=== PATIENT | female | born 1955 | race Caucasian/White ===

== ENCOUNTER → 2016-12-30 | Outpatient (CLI) | payer MEDICARE, OTHER ==
[2016-05-21 11:57] VITALS: BP 129/76
[~2016-12-30] MED LIST: ASPI325T4 PO; ATOR40TA PO; ATOR40TA59 PO; Aspirin PO; BYSTOLIC5 MG PO; CHOL10003 PO; CLOP75TA27 PO; DULO60CA6 PO; FLUT16SP NS; GLIP1TAB4 PO; INSU100I13 SQ; INSU100V13 SQ; Metoprolol Tartrate PO; PANT40TA3 PO
--- NOTE | 2016-12-30 12:53 | CARD ---
APPROVED REPORT EXAM: Two-dimensional and M-mode echocardiogram with Doppler and color Doppler. Other Information Quality : GoodHR: 68bpm Rhythm : NSR INDICATION Cardiac Disease: CAD 2D DIMENSIONS RVDd3.5 (2.9-3.5cm)Left Atrium(2D)3.8 (1.6-4.0cm) IVSd1.0 (0.7-1.1cm)Aortic Root(2D)2.9 (2.0-3.7cm) LVDd4.4 (3.9-5.9cm)LVOT Diameter2.0 (1.8-2.4cm) PWd1.0 (0.7-1.1cm)LVDs3.0 (2.5-4.0cm) FS (%) 31.0 %SV50.7 ml LVEF(%)59.0 (>50%) Aortic Valve AoV Peak Ángel.138.4cm/sAoV VTI30.7cm AO Peak GR.7.7mmHgLVOT Peak Ángel.115.0cm/s LVOT VTI 26.17cmAO Mean GR.4mmHg MARIIA (VMAX)2.26mj1PYJ (VTI)2.63cm2 Mitral Valve MV E Setzicen59.7cm/sMV DECEL LZRB851ot MV A Chsduuxi63.8cm/sMV E Mean Gr.1mmHg MV BRI95hhU/A Ratio0.9 MV A Hxlaktls937dtOOX (PHT)3.27cm2 TDI E/Lateral E'10.9E/Medial E'14.7 Pulmonary Valve PV Peak Hqzzxrah02.9cm/sPV Peak Grad.3mmHg RVOT VTI11.3cm Tricuspid Valve TR P. Bhxvitvw202jv/sRAP OVOLUPWD3uxLn TR Peak Gr.01zjEbXOVY81jnLt Pulmonary Vein S1 Vpnsdflp68.0cm/sD2 Byexyvci48.4cm/s PVa [id number] LEFT VENTRICLE The left ventricle is normal size. There is normal left ventricular wall thickness. Left ventricle sy stolic function is normal. The Ejection Fraction is 55-60%. There is normal LV segmental wall motion. Transmitral Doppler flow pattern is Grade I-abnormal relaxation pattern. There is no ventricular sep yamile defect visualized. RIGHT VENTRICLE The right ventricle is normal size. The right ventricular systolic function is normal. ATRIA The left atrium size is normal. The right atrium size is normal. The interatrial septum is intact wit h no evidence for an atrial septal defect or patent foramen ovale as noted on 2-D or Doppler imaging. AORTIC VALVE The aortic valve is normal in structure and function. The aortic valve is trileaflet. Doppler and Col or Flow revealed no significant aortic regurgitation. There is no significant aortic valvular stenosi s. MITRAL VALVE The mitral valve is normal in structure and function. There is no evidence of mitral valve prolapse. There is no mitral valve stenosis. Doppler and Color Flow revealed mild mitral regurgitation. TRICUSPID VALVE The tricuspid valve is normal in structure. Doppler and Color Flow revealed mild tricuspid regurgitat ion. The PA pressure was estimated at 31 mmHg. There is no tricuspid valve stenosis. PULMONIC VALVE Doppler and Color Flow revealed mild pulmonic valvular regurgitation. There is no pulmonic valvular s tenosis. GREAT VESSELS The aortic root is normal in size. The ascending aorta is dilated to 3.6cm. The IVC is normal in size and collapses >50% with inspiration. PERICARDIAL EFFUSION There is no pleural effusion. There is no evidence of significant pericardial effusion. Critical Notification Critical Value: No <Conclusion> Left ventricle systolic function is normal. The Ejection Fraction is 55-60%. There is normal LV segmental wall motion. The ascending aorta is dilated to 3.6cm.
== END | disposition home or self-care (01) ==
LOC: ECHO 08:37
PROVIDERS: ATTEND Internal Medicine Cardiovascular Disease
DX: I25.10 Atherosclerotic heart disease of native coronary artery without angina pectoris (principal); I34.0 Nonrheumatic mitral (valve) insufficiency; I37.1 Nonrheumatic pulmonary valve insufficiency
CPT/HCPCS: 93306

== ENCOUNTER → 2018-01-06 | Outpatient (CLI) | payer MEDICARE, OTHER ==
[2018-01-06] MEDS: REGADENOSON 0.4 MG/5 ML DISP.SYRIN. IV (09:30)
== END | disposition home or self-care (01) ==
LOC: NM 07:27
DX: I25.10 Atherosclerotic heart disease of native coronary artery without angina pectoris (principal); I10 Essential (primary) hypertension; E11.9 Type 2 diabetes mellitus without complications
CPT/HCPCS: 78452; 93017; 96374; 96375; 96376; A9500; J2785

== ENCOUNTER 2018-11-17 16:47 | Inpatient (IN) | payer MEDICARE, OTHER ==
[~2018-11-17] VITALS: Ht 163.8 cm; Wt 77.6 kg
[~2018-11-17 16:47] MED LIST changes: -ASPI325T4 PO; +ASPI325T8 PO; -CLOP75TA27 PO; +CLOP75TA57 PO
[2018-11-17 17:29] LABS: BASO % 0 % (0-3); EOS # 0.1 x10^3/uL (0.0-0.7); EOS % 3 % (0-3); HEMATOCRIT 42.2 % (36.0-47.0); HEMOGLOBIN 13.7 g/dL (12.0-15.5); LYMPH # 0.8 x10^3/uL (1.0-4.8); LYMPH % 14 % (24-48); MEAN CORPUSCULAR HEMOGLOBIN 30 pg (25-35); MEAN CORPUSCULAR HGB CONC 33 g/dL (31-37); MEAN CORPUSCULAR VOLUME 92 fL (79-100); MONO # 0.5 x10^3/uL (0.0-1.1); MONO % 9 % (0-9); NEUT # 4.1 x10^3uL (1.8-7.7); NEUT % 73 % (31-73); PLATELET COUNT 177 x10^3/uL (140-400); RED BLOOD COUNT 4.57 x10^6/uL (3.50-5.40); RED CELL DISTRIBUTION WIDTH 14.2 % (11.5-14.5); WHITE BLOOD COUNT 5.6 x10^3/uL (4.0-11.0)
[2018-11-17] MEDS ORDERED: IV NORMAL SALINE 1000ML BAG 1,000 ML IV ONE ×4 (17:30→18:15)
[2018-11-17 17:31] LABS: BILIRUBIN,URINE NEGATIVE (NEG); CLARITY,URINE CLEAR; COLOR,URINE YELLOW; NITRITE,URINE NEGATIVE (NEG); PH,URINE 5.5; PROTEIN,URINE NEGATIVE (NEG-TRACE); UROBILINOGEN,URINE 0.2 mg/dL (0.2 mg/dL)
--- NOTE | 2018-11-17 17:36 | PHYS DOC ---
Past Medical History Past Medical History: CAD, Diabetes-Type II, Fibromyalgia, High Cholesterol, Hypertension Past Surgical History: Tubal ligation, Other Additional Past Surgical Histo: Stent placement; left shoulder; Alcohol Use: Rarely Drug Use: None Adult General Chief Complaint Chief Complaint: FLU SYMPTOM HPI HPI Patient is a 63 year old female with history of hypertension, diabetes type 2, high cholesterol, CVA, who presents to the ED today complaining of a productive cough, 8 out of 10 throbbing anterior headache, and fevers for 3 days. Patient denies this being the worst headache in her life. Denies any nausea vomiting. Denies any abdominal pain or diarrhea. Denies any neck pain or nuchal rigidity. Patient states she used to be on diabetes, high blood pressure medications, she took herself from the medications and went to a diet. Review of Systems Review of Systems Constitutional: Reports fever Eyes: Denies change in visual acuity, redness, or eye pain [] HENT: Denies nasal congestion or sore throat [] Respiratory: Reports cough, denies shortness of breath [] Cardiovascular: No additional information not addressed in HPI [] GI: Denies abdominal pain, nausea, vomiting, bloody stools or diarrhea [] : Denies dysuria or hematuria [] Musculoskeletal: Denies back pain or joint pain [] Integument: Denies rash or skin lesions [] Neurologic: Reports headache, denies focal weakness or sensory changes [] [] All other systems were reviewed and found to be within normal limits, except as documented in this note. Current Medications Current Medications Current Medications Medications (Trade) Dose Ordered Sig/Monique Start Time Stop Time Status Last Admin Dose Admin Acetaminophen (Tylenol) 1,000 mg 1X ONCE 11/17/18 18:00 11/17/18 18:01 DC 11/17/18 18:33 1,000 MG Insulin Human Regular (HumuLIN R VIAL) 10 unit 1X ONCE 11/17/18 18:15 11/17/18 18:16 DC 11/17/18 18:35 10 UNIT Piperacillin Sod/ Tazobactam Sod 4.5 gm/Sodium Chloride 100 ml @ 200 mls/hr 1X ONCE 11/17/18 18:00 11/17/18 18:00 DC Sodium Chloride 1,000 ml @ 1,000 mls/hr 1X ONCE 11/17/18 18:15 11/17/18 19:14 DC 11/17/18 18:08 1,000 MLS/HR Allergies Allergies Allergies Coded Allergies Type Severity Reaction Last Updated Verified No Known Drug Allergies 11/20/15 No Physical Exam Physical Exam Constitutional: Well developed, well nourished, no acute distress, non-toxic appearance. [] HENT: Normocephalic, atraumatic, bilateral external ears normal, oropharynx moist, no oral exudates, nose normal. [] Eyes: PERRLA, EOMI, conjunctiva normal, no discharge. [] Neck: Normal range of motion, no tenderness, supple, no stridor. Negative meningeal signs Cardiovascular:Heart rate regular rhythm, no murmur [] Lungs & Thorax: Bilateral breath sounds clear to auscultation [] Abdomen: Bowel sounds normal, soft, no tenderness, no masses, no pulsatile masses. [] Skin: Warm, dry, no erythema, no rash. [] Back: No tenderness, no CVA tenderness. [] Extremities: No tenderness, no cyanosis, no clubbing, ROM intact, no edema. [] Neurologic: Alert and oriented X 3, normal motor function, normal sensory function, no focal deficits noted. Cranial nerves II through XII intact Psychologic: Affect normal, judgement normal, mood normal. [] Current Patient Data Vital Signs Vital Signs Date Time Temp Pulse Resp B/P (MAP) Pulse Ox O2 Delivery O2 Flow Rate FiO2 11/17/18 18:40 92 160/75 (103) 96 11/17/18 17:00 99.7 20 Room Air 99.7 Lab Values Laboratory Tests Test 11/17/18 16:50 11/17/18 17:15 11/17/18 19:22 Urine Collection Type Unknown Urine Color Yellow Urine Clarity Clear Urine pH 5.5 Urine Specific [place] >=1.030 Urine Protein Negative mg/dL (NEG-TRACE) Urine Glucose (UA) >=1000 mg/dL (NEG) Urine Ketones (Stick) 15 mg/dL (NEG) Urine Blood Negative (NEG) Urine Nitrite Negative (NEG) Urine Bilirubin Negative (NEG) Urine Urobilinogen Dipstick 0.2 mg/dL (0.2 mg/dL) Urine Leukocyte Esterase Negative (NEG) Urine RBC 0 /HPF (0-2) Urine WBC 0 /HPF (0-4) Urine Squamous Epithelial Cells Few /LPF Urine Bacteria Few /HPF (0-FEW) White Blood Count 5.6 x10^3/uL (4.0-11.0) Red Blood Count 4.57 x10^6/uL (3.50-5.40) Hemoglobin 13.7 g/dL (12.0-15.5) Hematocrit 42.2 % (36.0-47.0) Mean Corpuscular Volume 92 fL (79-100) Mean Corpuscular Hemoglobin 30 pg (25-35) Mean Corpuscular Hemoglobin Concent 33 g/dL (31-37) Red Cell Distribution Width 14.2 % (11.5-14.5) Platelet Count 177 x10^3/uL (140-400) Neutrophils (%) (Auto) 73 % (31-73) Lymphocytes (%) (Auto) 14 % (24-48) L Monocytes (%) (Auto) 9 % (0-9) Eosinophils (%) (Auto) 3 % (0-3) Basophils (%) (Auto) 0 % (0-3) Neutrophils # (Auto) 4.1 x10^3uL (1.8-7.7) Lymphocytes # (Auto) 0.8 x10^3/uL (1.0-4.8) L Monocytes # (Auto) 0.5 x10^3/uL (0.0-1.1) Eosinophils # (Auto) 0.1 x10^3/uL (0.0-0.7) Basophils # (Auto) 0.0 x10^3/uL (0.0-0.2) Sodium Level 132 mmol/L (136-145) L Potassium Level 4.0 mmol/L (3.5-5.1) Chloride Level 94 mmol/L (98-107) L Carbon Dioxide Level 27 mmol/L (21-32) Anion Gap 11 (6-14) Blood Urea Nitrogen 16 mg/dL (7-20) Creatinine 1.0 mg/dL (0.6-1.0) Estimated GFR (Cockcroft-Gault) 55.6 BUN/Creatinine Ratio 16 (6-20) Glucose Level 601 mg/dL (70-99) *H Lactic Acid Level 1.8 mmol/L (0.4-2.0) Calcium Level 8.9 mg/dL (8.5-10.1) Total Bilirubin 0.3 mg/dL (0.2-1.0) Aspartate Amino Transferase (AST) 55 U/L (15-37) H Alanine Aminotransferase (ALT) 74 U/L (14-59) H Alkaline Phosphatase 266 U/L (46-116) H Total Protein 7.2 g/dL (6.4-8.2) Albumin 3.1 g/dL (3.4-5.0) L Albumin/Globulin Ratio 0.8 (1.0-1.7) L Lipase 105 U/L (73-393) Influenza Type A Antigen Positive (NEGATIVE) Influenza Type B Antigen Negative (NEGATIVE) Glucose (Fingerstick) 353 mg/dL (70-99) H Laboratory Tests 11/17/18 17:15 Laboratory Tests 11/17/18 17:15 EKG EKG [] Radiology/Procedures Radiology/Procedures [] Course & Med Decision Making Course & Med Decision Making Pertinent Labs and Imaging studies reviewed. (See chart for details) This is a 63-year-old female patient presenting to the ED today with complaints of cough, headache, fever, symptoms for 3 days. + for Influenza A. Chest x-ray is negative. Blood glucose 61, normal anion gap, 15 ketones in urine. Patient was started on insulin, IV fluids ordered in the ED. Spoke with who accepted patient for admission Dragon Disclaimer Dragon Disclaimer This electronic medical record was generated, in whole or in part, using a voice recognition dictation system. Departure Departure Impression: Primary Impression: Influenza A Additional Impressions: Hyperglycemia Fever Disposition: ADMITTED INPATIENT Condition: STABLE Referrals: ZACARIAS STARKS MD (PCP) Problem Qualifiers Additional Impressions: Fever Fever type: unspecified Qualified Codes: R50.9 - Fever, unspecified MUTDULCE PEREZ [employer] SYSTEMS ANALYST Nov 17, 2018 17:36
[2018-11-17 17:37] LABS: BACTERIA,URINE FEW /HPF (0-FEW); RBC,URINE 0 /HPF (0-2); SQUAMOUS EPITHELIAL CELL,UR FEW /LPF; WBC,URINE 0 /HPF (0-4)
[2018-11-17 17:49] LABS: INFLUENZA A PATIENT POSITIVE (NEGATIVE); INFLUENZA B PATIENT NEGATIVE (NEGATIVE)
[2018-11-17 17:58] LABS: ALBUMIN 3.1 g/dL (3.4-5.0); ALBUMIN/GLOBULIN RATIO 0.8 (1.0-1.7); CALCIUM 8.9 mg/dL (8.5-10.1); GFR 55.6; TOTAL BILIRUBIN 0.3 mg/dL (0.2-1.0); TOTAL PROTEIN 7.2 g/dL (6.4-8.2)
[2018-11-17] MEDS ORDERED: ACETAMINOPHEN 500 MG TABLET PO ONE (18:00)
[2018-11-17] MEDS ORDERED: PIPERACILLIN/TAZOBACTAM 4.5 GM in IV NORMAL SALINE 100ML 100 ML IV ONE (18:00)
[2018-11-17] MEDS ORDERED: INSULIN REGULAR 100 UNIT/ML 3ML VIAL. IV ONE (18:15)
--- NOTE | 2018-11-17 18:25 | RAD ---
Chest radiograph 11/17/2018 5:36 PM INDICATION: Fever COMPARISON: None available TECHNIQUE: Frontal and lateral views of the chest are provided. FINDINGS: The cardiomediastinal silhouette is within normal limits. There are no pleural effusions. There is no pulmonary vascular congestion. There is no pneumothorax. The lungs are clear. No significant osseous abnormality is identified. IMPRESSION: No acute cardiopulmonary process. Electronically signed by: Petrona Pena MD (11/17/2018 6:22 PM) [facility]
[2018-11-17] MEDS ORDERED: ONDANSETRON PF 4 MG/2 ML VIAL. IV PRN ×2 (20:45→21:00)
[2018-11-17] MEDS ORDERED: LABETALOL 20 MG/4 ML DISP.SYRIN. IVP PRN (20:45)
[2018-11-17] MEDS ORDERED: MORPHINE SULFATE 4 MG/ML VIAL. IV PRN ×2 (20:45→21:00)
[2018-11-17] MEDS ORDERED: ACETAMINOPHEN 325 MG TABLET. PO PRN (21:00)
[2018-11-17] MEDS ORDERED: DEXTROSE 50% 25 GM / 50ML DISP.SYRIN. IV PRN (21:00)
[2018-11-17] MEDS: IV NORMAL SALINE 1000ML BAG 1,000 ML IV SCH (21:41)
[2018-11-17] MEDS: ATORVASTATIN CALCIUM 40 MG TABLET. PO SCH (21:41)
--- NOTE | 2018-11-17 21:46 | PDOC1 ---
History and Physical Date of Admission Date of Admission 11/17/2018 Identification/Chief Complaint Chief Complaint I feel sick Problems: (1) Influenza A (2) Hyperglycemia Source Source: Chart review, Patient History of Present Illness History of Present Illness Patient is a 63 year old female with past medical history of DM HTN and dyslipidemia who was in her usual state of health until mor or less 3 days prior to her admission when she started complaining of generalized malaise, body aches, runny nose and headaches. The patient's daughter had similar symptoms and most likely was the culprit of the patient's illness. Patient was evaluated in the ED and diagnosed with influenza A since the patient is past the 48 hours window she would not benefit from tamiflu at this point. She has had decrease in appetite and decrease oral intake as a consequence of her acute illness. She was found to have uncontrolle diabetes mellitus type 2 insulin requiring reason why we were asked to admit the patient for further treatment. She is feeling somewhat better after fluid resuscitation in the ED. All concerns addressed to the best of my abilities Past Medical History Cardiovascular: HTN, Hyperlipidemia Endocrine: Diabetes Past Surgical History Past Surgical History: No pertinent history Family History Family History: Other (reviewed and found non contributory to the present) Social History Smoke: No ALCOHOL: none Drugs: None Current Problem List Problem List Problems Medical Problems: (1) Fever Status: Acute Current Medications Current Medications Current Medications Medications (Trade) Dose Ordered Sig/Monique Start Time Stop Time Status Last Admin Dose Admin Acetaminophen (Tylenol) 650 mg PRN Q4HRS PRN 11/17/18 21:00 11/17/18 21:00 DC Aspirin (Karen Aspirin) 325 mg DAILY 11/18/18 09:00 Atorvastatin Calcium (Lipitor) 40 mg HS 11/17/18 21:00 Clopidogrel Bisulfate (Plavix) 75 mg DAILYWBKFT 11/18/18 08:00 Dextrose (Dextrose 50%-Water Syringe) 12.5 gm PRN Q15MIN PRN 11/17/18 21:00 Duloxetine HCl (Cymbalta) 60 mg DAILY 11/18/18 09:00 Fluticasone Propionate (Flonase) 2 spray DAILY 11/18/18 09:00 Insulin Glargine (Lantus) 40 units QHS 11/17/18 21:00 Insulin Human Lispro (HumaLOG) 0-9 UNITS TIDWMEALS 11/18/18 08:00 Insulin Human Regular (HumuLIN R VIAL) 10 unit 1X ONCE 11/17/18 18:15 11/17/18 18:16 DC 11/17/18 18:35 10 UNIT Labetalol HCl (Normodyne Iv Push) 20 mg PRN Q2HR PRN 11/17/18 20:45 Metoprolol Tartrate (Lopressor) 25 mg BID 11/18/18 09:00 Morphine Sulfate (Morphine Sulfate) 4 mg PRN Q2HR PRN 11/17/18 21:00 11/17/18 21:00 DC Ondansetron HCl (Zofran) 4 mg PRN Q8HRS PRN 11/17/18 21:00 11/17/18 21:00 DC Piperacillin Sod/ Tazobactam Sod 4.5 gm/Sodium Chloride 100 ml @ 200 mls/hr 1X ONCE 11/17/18 18:00 11/17/18 18:00 DC Sodium Chloride 1,000 ml @ 100 mls/hr Q10H 11/17/18 21:30 Vitamin D (Vitamin D3) 1,000 unit DAILY 11/18/18 09:00 Allergies Allergies Allergies Coded Allergies Type Severity Reaction Last Updated Verified No Known Drug Allergies 11/20/15 No ROS Review of System CONSTITUTIONAL: No fever or chills EYES: No recent changes SKIN: No rash or itching CARDIOVASCULAR: No chest pain, syncope, palpitations, or edema RESPIRATORY: No SOB + cough GASTROINTESTINAL: No nausea, vomiting or abdominal pain NEUROLOGICAL: + headaches or weakness ENDOCRINE: No cold or heat intolerance GENITOURINARY: No urgency or frequency of urination MUSCULOSKELETAL: No back pain or joint pain LYMPHATICS: No enlarged lymph nodes PSYCHIATRIC: No anxiety or depression Physical Exam Physical Exam GEN.: No apparent distress. Alert and oriented. HEENT: Head is normocephalic, atraumatic NECK: Supple. LUNGS: Clear to auscultation. HEART: RRR, S1, S2 present. Peripheral pulses intact ABDOMEN: Soft, nontender. Positive bowel sounds. EXTREMITIES: Without any cyanosis. NEUROLOGIC: Normal speech, normal tone PSYCHIATRIC: Normal affect, normal mood. SKIN: No ulcerations Vitals Vitals Vital Signs Date Time Temp Pulse Resp B/P (MAP) Pulse Ox O2 Delivery O2 Flow Rate FiO2 11/17/18 18:40 92 160/75 (103) 96 11/17/18 17:00 99.7 20 Room Air 99.7 Labs Labs Laboratory Tests Test 11/17/18 16:50 11/17/18 17:15 11/17/18 19:22 11/17/18 20:46 Urine Collection Type Unknown Urine Color Yellow Urine Clarity Clear Urine pH 5.5 Urine Specific [place] >=1.030 Urine Protein Negative mg/dL (NEG-TRACE) Urine Glucose (UA) >=1000 mg/dL (NEG) Urine Ketones (Stick) 15 mg/dL (NEG) Urine Blood Negative (NEG) Urine Nitrite Negative (NEG) Urine Bilirubin Negative (NEG) Urine Urobilinogen Dipstick 0.2 mg/dL (0.2 mg/dL) Urine Leukocyte Esterase Negative (NEG) Urine RBC 0 /HPF (0-2) Urine WBC 0 /HPF (0-4) Urine Squamous Epithelial Cells Few /LPF Urine Bacteria Few /HPF (0-FEW) White Blood Count 5.6 x10^3/uL (4.0-11.0) Red Blood Count 4.57 x10^6/uL (3.50-5.40) Hemoglobin 13.7 g/dL (12.0-15.5) Hematocrit 42.2 % (36.0-47.0) Mean Corpuscular Volume 92 fL (79-100) Mean Corpuscular Hemoglobin 30 pg (25-35) Mean Corpuscular Hemoglobin Concent 33 g/dL (31-37) Red Cell Distribution Width 14.2 % (11.5-14.5) Platelet Count 177 x10^3/uL (140-400) Neutrophils (%) (Auto) 73 % (31-73) Lymphocytes (%) (Auto) 14 % (24-48) Monocytes (%) (Auto) 9 % (0-9) Eosinophils (%) (Auto) 3 % (0-3) Basophils (%) (Auto) 0 % (0-3) Neutrophils # (Auto) 4.1 x10^3uL (1.8-7.7) Lymphocytes # (Auto) 0.8 x10^3/uL (1.0-4.8) Monocytes # (Auto) 0.5 x10^3/uL (0.0-1.1) Eosinophils # (Auto) 0.1 x10^3/uL (0.0-0.7) Basophils # (Auto) 0.0 x10^3/uL (0.0-0.2) Sodium Level 132 mmol/L (136-145) Potassium Level 4.0 mmol/L (3.5-5.1) Chloride Level 94 mmol/L (98-107) Carbon Dioxide Level 27 mmol/L (21-32) Anion Gap 11 (6-14) Blood Urea Nitrogen 16 mg/dL (7-20) Creatinine 1.0 mg/dL (0.6-1.0) Estimated GFR (Cockcroft-Gault) 55.6 BUN/Creatinine Ratio 16 (6-20) Glucose Level 601 mg/dL (70-99) Lactic Acid Level 1.8 mmol/L (0.4-2.0) Calcium Level 8.9 mg/dL (8.5-10.1) Total Bilirubin 0.3 mg/dL (0.2-1.0) Aspartate Amino Transf (AST/SGOT) 55 U/L (15-37) Alanine Aminotransferase (ALT/SGPT) 74 U/L (14-59) Alkaline Phosphatase 266 U/L (46-116) Total Protein 7.2 g/dL (6.4-8.2) Albumin 3.1 g/dL (3.4-5.0) Albumin/Globulin Ratio 0.8 (1.0-1.7) Lipase 105 U/L (73-393) Influenza Type A Antigen Positive (NEGATIVE) Influenza Type B Antigen Negative (NEGATIVE) Glucose (Fingerstick) 353 mg/dL (70-99) 447 mg/dL (70-99) Laboratory Tests Test 11/17/18 16:50 11/17/18 17:15 11/17/18 19:22 11/17/18 20:46 Urine Collection Type Unknown Urine Color Yellow Urine Clarity Clear Urine pH 5.5 Urine Specific [place] >=1.030 Urine Protein Negative mg/dL (NEG-TRACE) Urine Glucose (UA) >=1000 mg/dL (NEG) Urine Ketones (Stick) 15 mg/dL (NEG) Urine Blood Negative (NEG) Urine Nitrite Negative (NEG) Urine Bilirubin Negative (NEG) Urine Urobilinogen Dipstick 0.2 mg/dL (0.2 mg/dL) Urine Leukocyte Esterase Negative (NEG) Urine RBC 0 /HPF (0-2) Urine WBC 0 /HPF (0-4) Urine Squamous Epithelial Cells Few /LPF Urine Bacteria Few /HPF (0-FEW) White Blood Count 5.6 x10^3/uL (4.0-11.0) Red Blood Count 4.57 x10^6/uL (3.50-5.40) Hemoglobin 13.7 g/dL (12.0-15.5) Hematocrit 42.2 % (36.0-47.0) Mean Corpuscular Volume 92 fL (79-100) Mean Corpuscular Hemoglobin 30 pg (25-35) Mean Corpuscular Hemoglobin Concent 33 g/dL (31-37) Red Cell Distribution Width 14.2 % (11.5-14.5) Platelet Count 177 x10^3/uL (140-400) Neutrophils (%) (Auto) 73 % (31-73) Lymphocytes (%) (Auto) 14 % (24-48) Monocytes (%) (Auto) 9 % (0-9) Eosinophils (%) (Auto) 3 % (0-3) Basophils (%) (Auto) 0 % (0-3) Neutrophils # (Auto) 4.1 x10^3uL (1.8-7.7) Lymphocytes # (Auto) 0.8 x10^3/uL (1.0-4.8) Monocytes # (Auto) 0.5 x10^3/uL (0.0-1.1) Eosinophils # (Auto) 0.1 x10^3/uL (0.0-0.7) Basophils # (Auto) 0.0 x10^3/uL (0.0-0.2) Sodium Level 132 mmol/L (136-145) Potassium Level 4.0 mmol/L (3.5-5.1) Chloride Level 94 mmol/L (98-107) Carbon Dioxide Level 27 mmol/L (21-32) Anion Gap 11 (6-14) Blood Urea Nitrogen 16 mg/dL (7-20) Creatinine 1.0 mg/dL (0.6-1.0) Estimated GFR (Cockcroft-Gault) 55.6 BUN/Creatinine Ratio 16 (6-20) Glucose Level 601 mg/dL (70-99) Lactic Acid Level 1.8 mmol/L (0.4-2.0) Calcium Level 8.9 mg/dL (8.5-10.1) Total Bilirubin 0.3 mg/dL (0.2-1.0) Aspartate Amino Transf (AST/SGOT) 55 U/L (15-37) Alanine Aminotransferase (ALT/SGPT) 74 U/L (14-59) Alkaline Phosphatase 266 U/L (46-116) Total Protein 7.2 g/dL (6.4-8.2) Albumin 3.1 g/dL (3.4-5.0) Albumin/Globulin Ratio 0.8 (1.0-1.7) Lipase 105 U/L (73-393) Influenza Type A Antigen Positive (NEGATIVE) Influenza Type B Antigen Negative (NEGATIVE) Glucose (Fingerstick) 353 mg/dL (70-99) 447 mg/dL (70-99) VTE Prophylaxis Ordered VTE Prophylaxis Devices: Yes VTE Pharmacological Prophylaxi: No Assessment/Plan Assessment/Plan Uncontrolled diabetes mellitus type 2 insulin requiring Influenza A Essential hypertension dyslipidemia Moderate dehydration Pseudohyponatremia secondary to hyperglycemia Plan: fluid resuscitation restart home medications follow glycemia in the am supportive measures for influenza dvt prophylaxis: SEBAS SAUCEDO MD Nov 17, 2018 21:46
[2018-11-17] MEDS: INSULIN GLARGINE 300 UNITS/3 ML INSULN.PEN. SQ SCH (21:47)
[2018-11-17 22:36] VITALS: BP 115/59
[2018-11-17] MEDS ORDERED: LISI-338 PO (22:55)
[2018-11-18 03:27] VITALS: BP 144/77
[2018-11-18 04:01] LABS: BASO % 0 % (0-3); EOS # 0.2 x10^3/uL (0.0-0.7); EOS % 3 % (0-3); HEMATOCRIT 41.3 % (36.0-47.0); HEMOGLOBIN 13.4 g/dL (12.0-15.5); LYMPH # 1.2 x10^3/uL (1.0-4.8); LYMPH % 18 % (24-48); MEAN CORPUSCULAR HEMOGLOBIN 30 pg (25-35); MEAN CORPUSCULAR HGB CONC 32 g/dL (31-37); MEAN CORPUSCULAR VOLUME 92 fL (79-100); MONO # 0.7 x10^3/uL (0.0-1.1); MONO % 11 % (0-9); NEUT # 4.2 x10^3uL (1.8-7.7); NEUT % 68 % (31-73); PLATELET COUNT 175 x10^3/uL (140-400); RED BLOOD COUNT 4.51 x10^6/uL (3.50-5.40); RED CELL DISTRIBUTION WIDTH 14.4 % (11.5-14.5); WHITE BLOOD COUNT 6.3 x10^3/uL (4.0-11.0)
[2018-11-18 04:15] LABS: CALCIUM 8.4 mg/dL (8.5-10.1); CREATININE 0.7 mg/dL (0.6-1.0); POTASSIUM 3.7 mmol/L (3.5-5.1)
[2018-11-18] MEDS: ACETAMINOPHEN 325 MG TABLET. PO PRN ×2 (07:14→15:33)
[2018-11-18] MEDS: IV NORMAL SALINE 1000ML BAG 1,000 ML IV SCH ×2 (07:14→16:50)
[2018-11-18 07:20] VITALS: BP 137/79
[2018-11-18] MEDS ORDERED: ALBUTEROL SULFATE 2.5 MG/3 ML NEBU. NEB ONE (07:30)
[2018-11-18] MEDS: INSULIN LISPRO 300 UNITS/3 ML INSULN.PEN. SQ SCH ×5 (07:34→16:54)
[2018-11-18] MEDS: CHOLECALCIFEROL (VITAMIN D3) 1,000 UNIT TABLET PO SCH (08:54)
[2018-11-18] MEDS: FLUTICASONE 50MCG/NASAL SPRAY 16GM BOTTLE. NS SCH (08:54)
[2018-11-18] MEDS: ASPIRIN 325 MG TABLET PO SCH (08:54)
[2018-11-18] MEDS: CLOPIDOGREL BISULFATE 75 MG TABLET PO SCH (08:54)
[2018-11-18] MEDS: DULoxetine HCL 30 MG CAPSULE.DR PO SCH (08:55)
[2018-11-18] MEDS: METOPROLOL TART IMMED RELEASE 25 MG TABLET. PO SCH ×2 (08:55→20:57)
[2018-11-18 11:00] VITALS: BP 107/66
[2018-11-18] MEDS: ALBUTEROL SULFATE 2.5 MG/3 ML NEBU. NEB SCH ×3 (11:31→20:16)
--- NOTE | 2018-11-18 11:40 | PDOC ---
PROGRESS NOTES Chief Complaint Chief Complaint Uncontrolled diabetes mellitus type 2 insulin requiring Influenza A Essential hypertension dyslipidemia Moderate dehydration Pseudohyponatremia secondary to hyperglycemia History of Present Illness History of Present Illness 63 year old female with past medical history of DM HTN and dyslipidemia who was in her usual state of health until 3 days prior to her admission when she started complaining of generalized malaise, body aches, runny nose and headaches. The patient's daughter had similar symptoms and most likely was the culprit of the patient's illness. Patient was evaluated in the ED and diagnosed with influenza A since the patient is past the 48 hours window she was initially not given tamiflu She has had decrease in appetite and decrease oral intake as a consequence of her acute illness. She was found to have uncontrolle diabetes mellitus type 2 insulin requiring reason why we were asked to admit the patient for further treatment. She is feeling somewhat better after fluid resuscitation in the ED. Still very short of breath and wheezing today. Hypoxic. She is c/o a bad headache and nausea. Plan: Order nebs. IV zofran for nausea. Toradol IV for headache Start tamiflu, though she is beyond treatment she is worsening, needs further treatment. Vitals Vitals Vital Signs Date Time Temp Pulse Resp B/P (MAP) Pulse Ox O2 Delivery O2 Flow Rate FiO2 11/18/18 08:55 86 137/79 11/18/18 08:00 Room Air 11/18/18 07:35 93 11/18/18 07:25 99.0 99.0 11/18/18 07:20 20 Physical Exam General: Alert, Cooperative Heart: Regular rate, No murmurs Lungs: Wheezing Abdomen: Normal bowel sounds, Soft Extremities: No clubbing, No cyanosis Skin: No rashes, No breakdown Labs LABS Laboratory Tests Test 11/17/18 16:50 11/17/18 17:15 11/17/18 19:22 11/17/18 20:46 Urine Collection Type Unknown Urine Color Yellow Urine Clarity Clear Urine pH 5.5 Urine Specific [place] >=1.030 Urine Protein Negative mg/dL (NEG-TRACE) Urine Glucose (UA) >=1000 mg/dL (NEG) Urine Ketones (Stick) 15 mg/dL (NEG) Urine Blood Negative (NEG) Urine Nitrite Negative (NEG) Urine Bilirubin Negative (NEG) Urine Urobilinogen Dipstick 0.2 mg/dL (0.2 mg/dL) Urine Leukocyte Esterase Negative (NEG) Urine RBC 0 /HPF (0-2) Urine WBC 0 /HPF (0-4) Urine Squamous Epithelial Cells Few /LPF Urine Bacteria Few /HPF (0-FEW) White Blood Count 5.6 x10^3/uL (4.0-11.0) Red Blood Count 4.57 x10^6/uL (3.50-5.40) Hemoglobin 13.7 g/dL (12.0-15.5) Hematocrit 42.2 % (36.0-47.0) Mean Corpuscular Volume 92 fL (79-100) Mean Corpuscular Hemoglobin 30 pg (25-35) Mean Corpuscular Hemoglobin Concent 33 g/dL (31-37) Red Cell Distribution Width 14.2 % (11.5-14.5) Platelet Count 177 x10^3/uL (140-400) Neutrophils (%) (Auto) 73 % (31-73) Lymphocytes (%) (Auto) 14 % (24-48) Monocytes (%) (Auto) 9 % (0-9) Eosinophils (%) (Auto) 3 % (0-3) Basophils (%) (Auto) 0 % (0-3) Neutrophils # (Auto) 4.1 x10^3uL (1.8-7.7) Lymphocytes # (Auto) 0.8 x10^3/uL (1.0-4.8) Monocytes # (Auto) 0.5 x10^3/uL (0.0-1.1) Eosinophils # (Auto) 0.1 x10^3/uL (0.0-0.7) Basophils # (Auto) 0.0 x10^3/uL (0.0-0.2) Sodium Level 132 mmol/L (136-145) Potassium Level 4.0 mmol/L (3.5-5.1) Chloride Level 94 mmol/L (98-107) Carbon Dioxide Level 27 mmol/L (21-32) Anion Gap 11 (6-14) Blood Urea Nitrogen 16 mg/dL (7-20) Creatinine 1.0 mg/dL (0.6-1.0) Estimated GFR (Cockcroft-Gault) 55.6 BUN/Creatinine Ratio 16 (6-20) Glucose Level 601 mg/dL (70-99) Lactic Acid Level 1.8 mmol/L (0.4-2.0) Calcium Level 8.9 mg/dL (8.5-10.1) Total Bilirubin 0.3 mg/dL (0.2-1.0) Aspartate Amino Transf (AST/SGOT) 55 U/L (15-37) Alanine Aminotransferase (ALT/SGPT) 74 U/L (14-59) Alkaline Phosphatase 266 U/L (46-116) Total Protein 7.2 g/dL (6.4-8.2) Albumin 3.1 g/dL (3.4-5.0) Albumin/Globulin Ratio 0.8 (1.0-1.7) Lipase 105 U/L (73-393) Influenza Type A Antigen Positive (NEGATIVE) Influenza Type B Antigen Negative (NEGATIVE) Glucose (Fingerstick) 353 mg/dL (70-99) 447 mg/dL (70-99) Test 11/17/18 23:00 11/18/18 03:20 11/18/18 07:24 11/18/18 10:55 Lactic Acid Level 0.7 mmol/L (0.4-2.0) White Blood Count 6.3 x10^3/uL (4.0-11.0) Red Blood Count 4.51 x10^6/uL (3.50-5.40) Hemoglobin 13.4 g/dL (12.0-15.5) Hematocrit 41.3 % (36.0-47.0) Mean Corpuscular Volume 92 fL (79-100) Mean Corpuscular Hemoglobin 30 pg (25-35) Mean Corpuscular Hemoglobin Concent 32 g/dL (31-37) Red Cell Distribution Width 14.4 % (11.5-14.5) Platelet Count 175 x10^3/uL (140-400) Neutrophils (%) (Auto) 68 % (31-73) Lymphocytes (%) (Auto) 18 % (24-48) Monocytes (%) (Auto) 11 % (0-9) Eosinophils (%) (Auto) 3 % (0-3) Basophils (%) (Auto) 0 % (0-3) Neutrophils # (Auto) 4.2 x10^3uL (1.8-7.7) Lymphocytes # (Auto) 1.2 x10^3/uL (1.0-4.8) Monocytes # (Auto) 0.7 x10^3/uL (0.0-1.1) Eosinophils # (Auto) 0.2 x10^3/uL (0.0-0.7) Basophils # (Auto) 0.0 x10^3/uL (0.0-0.2) Sodium Level 142 mmol/L (136-145) Potassium Level 3.7 mmol/L (3.5-5.1) Chloride Level 104 mmol/L (98-107) Carbon Dioxide Level 27 mmol/L (21-32) Anion Gap 11 (6-14) Blood Urea Nitrogen 12 mg/dL (7-20) Creatinine 0.7 mg/dL (0.6-1.0) Estimated GFR (Cockcroft-Gault) 84.0 Glucose Level 315 mg/dL (70-99) Calcium Level 8.4 mg/dL (8.5-10.1) Glucose (Fingerstick) 202 mg/dL (70-99) 240 mg/dL (70-99) Assessment and Plan Assessmemt and Plan Problems Medical Problems: (1) Fever Status: Acute Comment Review of Relevant I have reviewed the following items trixie (where applicable) has been applied. Labs Laboratory Tests Test 11/17/18 16:50 11/17/18 17:15 11/17/18 19:22 11/17/18 20:46 Urine Collection Type Unknown Urine Color Yellow Urine Clarity Clear Urine pH 5.5 Urine Specific [place] >=1.030 Urine Protein Negative mg/dL (NEG-TRACE) Urine Glucose (UA) >=1000 mg/dL (NEG) Urine Ketones (Stick) 15 mg/dL (NEG) Urine Blood Negative (NEG) Urine Nitrite Negative (NEG) Urine Bilirubin Negative (NEG) Urine Urobilinogen Dipstick 0.2 mg/dL (0.2 mg/dL) Urine Leukocyte Esterase Negative (NEG) Urine RBC 0 /HPF (0-2) Urine WBC 0 /HPF (0-4) Urine Squamous Epithelial Cells Few /LPF Urine Bacteria Few /HPF (0-FEW) White Blood Count 5.6 x10^3/uL (4.0-11.0) Red Blood Count 4.57 x10^6/uL (3.50-5.40) Hemoglobin 13.7 g/dL (12.0-15.5) Hematocrit 42.2 % (36.0-47.0) Mean Corpuscular Volume 92 fL (79-100) Mean Corpuscular Hemoglobin 30 pg (25-35) Mean Corpuscular Hemoglobin Concent 33 g/dL (31-37) Red Cell Distribution Width 14.2 % (11.5-14.5) Platelet Count 177 x10^3/uL (140-400) Neutrophils (%) (Auto) 73 % (31-73) Lymphocytes (%) (Auto) 14 % (24-48) Monocytes (%) (Auto) 9 % (0-9) Eosinophils (%) (Auto) 3 % (0-3) Basophils (%) (Auto) 0 % (0-3) Neutrophils # (Auto) 4.1 x10^3uL (1.8-7.7) Lymphocytes # (Auto) 0.8 x10^3/uL (1.0-4.8) Monocytes # (Auto) 0.5 x10^3/uL (0.0-1.1) Eosinophils # (Auto) 0.1 x10^3/uL (0.0-0.7) Basophils # (Auto) 0.0 x10^3/uL (0.0-0.2) Sodium Level 132 mmol/L (136-145) Potassium Level 4.0 mmol/L (3.5-5.1) Chloride Level 94 mmol/L (98-107) Carbon Dioxide Level 27 mmol/L (21-32) Anion Gap 11 (6-14) Blood Urea Nitrogen 16 mg/dL (7-20) Creatinine 1.0 mg/dL (0.6-1.0) Estimated GFR (Cockcroft-Gault) 55.6 BUN/Creatinine Ratio 16 (6-20) Glucose Level 601 mg/dL (70-99) Lactic Acid Level 1.8 mmol/L (0.4-2.0) Calcium Level 8.9 mg/dL (8.5-10.1) Total Bilirubin 0.3 mg/dL (0.2-1.0) Aspartate Amino Transf (AST/SGOT) 55 U/L (15-37) Alanine Aminotransferase (ALT/SGPT) 74 U/L (14-59) Alkaline Phosphatase 266 U/L (46-116) Total Protein 7.2 g/dL (6.4-8.2) Albumin 3.1 g/dL (3.4-5.0) Albumin/Globulin Ratio 0.8 (1.0-1.7) Lipase 105 U/L (73-393) Influenza Type A Antigen Positive (NEGATIVE) Influenza Type B Antigen Negative (NEGATIVE) Glucose (Fingerstick) 353 mg/dL (70-99) 447 mg/dL (70-99) Test 11/17/18 23:00 11/18/18 03:20 11/18/18 07:24 11/18/18 10:55 Lactic Acid Level 0.7 mmol/L (0.4-2.0) White Blood Count 6.3 x10^3/uL (4.0-11.0) Red Blood Count 4.51 x10^6/uL (3.50-5.40) Hemoglobin 13.4 g/dL (12.0-15.5) Hematocrit 41.3 % (36.0-47.0) Mean Corpuscular Volume 92 fL (79-100) Mean Corpuscular Hemoglobin 30 pg (25-35) Mean Corpuscular Hemoglobin Concent 32 g/dL (31-37) Red Cell Distribution Width 14.4 % (11.5-14.5) Platelet Count 175 x10^3/uL (140-400) Neutrophils (%) (Auto) 68 % (31-73) Lymphocytes (%) (Auto) 18 % (24-48) Monocytes (%) (Auto) 11 % (0-9) Eosinophils (%) (Auto) 3 % (0-3) Basophils (%) (Auto) 0 % (0-3) Neutrophils # (Auto) 4.2 x10^3uL (1.8-7.7) Lymphocytes # (Auto) 1.2 x10^3/uL (1.0-4.8) Monocytes # (Auto) 0.7 x10^3/uL (0.0-1.1) Eosinophils # (Auto) 0.2 x10^3/uL (0.0-0.7) Basophils # (Auto) 0.0 x10^3/uL (0.0-0.2) Sodium Level 142 mmol/L (136-145) Potassium Level 3.7 mmol/L (3.5-5.1) Chloride Level 104 mmol/L (98-107) Carbon Dioxide Level 27 mmol/L (21-32) Anion Gap 11 (6-14) Blood Urea Nitrogen 12 mg/dL (7-20) Creatinine 0.7 mg/dL (0.6-1.0) Estimated GFR (Cockcroft-Gault) 84.0 Glucose Level 315 mg/dL (70-99) Calcium Level 8.4 mg/dL (8.5-10.1) Glucose (Fingerstick) 202 mg/dL (70-99) 240 mg/dL (70-99) Laboratory Tests Test 11/17/18 16:50 11/17/18 17:15 11/17/18 19:22 11/17/18 20:46 Urine Collection Type Unknown Urine Color Yellow Urine Clarity Clear Urine pH 5.5 Urine Specific [place] >=1.030 Urine Protein Negative mg/dL (NEG-TRACE) Urine Glucose (UA) >=1000 mg/dL (NEG) Urine Ketones (Stick) 15 mg/dL (NEG) Urine Blood Negative (NEG) Urine Nitrite Negative (NEG) Urine Bilirubin Negative (NEG) Urine Urobilinogen Dipstick 0.2 mg/dL (0.2 mg/dL) Urine Leukocyte Esterase Negative (NEG) Urine RBC 0 /HPF (0-2) Urine WBC 0 /HPF (0-4) Urine Squamous Epithelial Cells Few /LPF Urine Bacteria Few /HPF (0-FEW) White Blood Count 5.6 x10^3/uL (4.0-11.0) Red Blood Count 4.57 x10^6/uL (3.50-5.40) Hemoglobin 13.7 g/dL (12.0-15.5) Hematocrit 42.2 % (36.0-47.0) Mean Corpuscular Volume 92 fL (79-100) Mean Corpuscular Hemoglobin 30 pg (25-35) Mean Corpuscular Hemoglobin Concent 33 g/dL (31-37) Red Cell Distribution Width 14.2 % (11.5-14.5) Platelet Count 177 x10^3/uL (140-400) Neutrophils (%) (Auto) 73 % (31-73) Lymphocytes (%) (Auto) 14 % (24-48) Monocytes (%) (Auto) 9 % (0-9) Eosinophils (%) (Auto) 3 % (0-3) Basophils (%) (Auto) 0 % (0-3) Neutrophils # (Auto) 4.1 x10^3uL (1.8-7.7) Lymphocytes # (Auto) 0.8 x10^3/uL (1.0-4.8) Monocytes # (Auto) 0.5 x10^3/uL (0.0-1.1) Eosinophils # (Auto) 0.1 x10^3/uL (0.0-0.7) Basophils # (Auto) 0.0 x10^3/uL (0.0-0.2) Sodium Level 132 mmol/L (136-145) Potassium Level 4.0 mmol/L (3.5-5.1) Chloride Level 94 mmol/L (98-107) Carbon Dioxide Level 27 mmol/L (21-32) Anion Gap 11 (6-14) Blood Urea Nitrogen 16 mg/dL (7-20) Creatinine 1.0 mg/dL (0.6-1.0) Estimated GFR (Cockcroft-Gault) 55.6 BUN/Creatinine Ratio 16 (6-20) Glucose Level 601 mg/dL (70-99) Lactic Acid Level 1.8 mmol/L (0.4-2.0) Calcium Level 8.9 mg/dL (8.5-10.1) Total Bilirubin 0.3 mg/dL (0.2-1.0) Aspartate Amino Transf (AST/SGOT) 55 U/L (15-37) Alanine Aminotransferase (ALT/SGPT) 74 U/L (14-59) Alkaline Phosphatase 266 U/L (46-116) Total Protein 7.2 g/dL (6.4-8.2) Albumin 3.1 g/dL (3.4-5.0) Albumin/Globulin Ratio 0.8 (1.0-1.7) Lipase 105 U/L (73-393) Influenza Type A Antigen Positive (NEGATIVE) Influenza Type B Antigen Negative (NEGATIVE) Glucose (Fingerstick) 353 mg/dL (70-99) 447 mg/dL (70-99) Test 11/17/18 23:00 11/18/18 03:20 11/18/18 07:24 11/18/18 10:55 Lactic Acid Level 0.7 mmol/L (0.4-2.0) White Blood Count 6.3 x10^3/uL (4.0-11.0) Red Blood Count 4.51 x10^6/uL (3.50-5.40) Hemoglobin 13.4 g/dL (12.0-15.5) Hematocrit 41.3 % (36.0-47.0) Mean Corpuscular Volume 92 fL (79-100) Mean Corpuscular Hemoglobin 30 pg (25-35) Mean Corpuscular Hemoglobin Concent 32 g/dL (31-37) Red Cell Distribution Width 14.4 % (11.5-14.5) Platelet Count 175 x10^3/uL (140-400) Neutrophils (%) (Auto) 68 % (31-73) Lymphocytes (%) (Auto) 18 % (24-48) Monocytes (%) (Auto) 11 % (0-9) Eosinophils (%) (Auto) 3 % (0-3) Basophils (%) (Auto) 0 % (0-3) Neutrophils # (Auto) 4.2 x10^3uL (1.8-7.7) Lymphocytes # (Auto) 1.2 x10^3/uL (1.0-4.8) Monocytes # (Auto) 0.7 x10^3/uL (0.0-1.1) Eosinophils # (Auto) 0.2 x10^3/uL (0.0-0.7) Basophils # (Auto) 0.0 x10^3/uL (0.0-0.2) Sodium Level 142 mmol/L (136-145) Potassium Level 3.7 mmol/L (3.5-5.1) Chloride Level 104 mmol/L (98-107) Carbon Dioxide Level 27 mmol/L (21-32) Anion Gap 11 (6-14) Blood Urea Nitrogen 12 mg/dL (7-20) Creatinine 0.7 mg/dL (0.6-1.0) Estimated GFR (Cockcroft-Gault) 84.0 Glucose Level 315 mg/dL (70-99) Calcium Level 8.4 mg/dL (8.5-10.1) Glucose (Fingerstick) 202 mg/dL (70-99) 240 mg/dL (70-99) Medications Current Medications Piperacillin Sod/ Tazobactam Sod 4.5 gm/Sodium Chloride 100 ml @ 200 mls/hr 1X ONCE IV ; Start 11/17/18 at 18:00; Stop 11/17/18 at 18:00; Status DC Sodium Chloride 1,000 ml @ 1,000 mls/hr 1X ONCE IV ; Start 11/17/18 at 17:30; Stop 11/17/18 at 17:54; Status DC Acetaminophen (Tylenol) 1,000 mg 1X ONCE PO Last administered on 11/17/18at 18: 33; Start 11/17/18 at 18:00; Stop 11/17/18 at 18:01; Status DC Sodium Chloride 1,000 ml @ 1,000 mls/hr 1X ONCE IV ; Start 11/17/18 at 17:45; Stop 11/17/18 at 17:54; Status DC Sodium Chloride 1,000 ml @ 1,000 mls/hr 1X ONCE IV Last administered on at 18:08; Start 11/17/18 at 18:15; Stop 11/17/18 at 19:14; Status DC Sodium Chloride 1,000 ml @ 1,000 mls/hr 1X ONCE IV Last administered on at 18:08; Start 11/17/18 at 18:15; Stop 11/17/18 at 19:14; Status DC Insulin Human Regular (HumuLIN R VIAL) 10 unit 1X ONCE IV Last administered on 11/17/18at 18:35; Start 11/17/18 at 18:15; Stop 11/17/18 at 18:16; Status DC Aspirin (Karen Aspirin) 325 mg DAILY PO Last administered on 11/18/18at 08:54; Start 11/18/18 at 09:00 Atorvastatin Calcium (Lipitor) 40 mg HS PO Last administered on 11/17/18at 21:41 ; Start 11/17/18 at 21:00 Vitamin D (Vitamin D3) 1,000 unit DAILY PO Last administered on 11/18/18at 08:54 ; Start 11/18/18 at 09:00 Clopidogrel Bisulfate (Plavix) 75 mg DAILYWBKFT PO Last administered on at 08:54; Start 11/18/18 at 08:00 Fluticasone Propionate (Flonase) 2 spray DAILY NS Last administered on 08:54; Start 11/18/18 at 09:00 Insulin Glargine (Lantus) 40 units QHS SQ Last administered on 11/17/18at 21:47 ; Start 11/17/18 at 21:00 Duloxetine HCl (Cymbalta) 60 mg DAILY PO Last administered on 11/18/18 08:55; Start 11/18/18 at 09:00 Metoprolol Tartrate (Lopressor) 25 mg BID PO Last administered on 11/18/18 08: 55; Start 11/18/18 at 09:00 Labetalol HCl (Normodyne Iv Push) 20 mg PRN Q2HR PRN IVP HYPERTENSION, SEE COMMENTS; Start 11/17/18 at 20:45 Acetaminophen (Tylenol) 650 mg PRN Q6HRS PRN PO pain or temp > 100.4F Last administered on 11/18/18at 07:14; Start 11/17/18 at 20:45 Sodium Chloride 1,000 ml @ 100 mls/hr Q10H IV Last administered on 11/18/18at 07:14; Start 11/17/18 at 21:30 Morphine Sulfate (Morphine Sulfate) 2 mg PRN Q2HR PRN IV PAIN; Start 11/17/18 at 20:45 Ondansetron HCl (Zofran) 4 mg PRN Q6HRS PRN IV NAUSEA/VOMITING; Start 11/17/18 at 20:45 Ondansetron HCl (Zofran) 4 mg PRN Q8HRS PRN IV NAUSEA/VOMITING; Start 11/17/18 at 21:00; Stop 11/17/18 at 21:00; Status DC Morphine Sulfate (Morphine Sulfate) 4 mg PRN Q2HR PRN IV PAIN; Start 11/17/18 at 21:00; Stop 11/17/18 at 21:00; Status DC Acetaminophen (Tylenol) 650 mg PRN Q4HRS PRN PO FEVER; Start 11/17/18 at 21:00 ; Stop 11/17/18 at 21:00; Status DC Insulin Human Lispro (HumaLOG) 0-9 UNITS TIDWMEALS SQ Last administered on 11/18 07:34; Start 11/18/18 at 08:00 Dextrose (Dextrose 50%-Water Syringe) 12.5 gm PRN Q15MIN PRN IV SEE COMMENTS; Start 11/17/18 at 21:00 Albuterol Sulfate (Ventolin Neb Soln) 2.5 mg 1X ONCE NEB Last administered on 11/18/18at 07:35; Start 11/18/18 at 07:30; Stop 11/18/18 at 07:31; Status DC Albuterol Sulfate (Ventolin Neb Soln) 2.5 mg RTQID NEB Last administered on at 11:31; Start 11/18/18 at 12:00 Active Scripts Active Plavix (Clopidogrel Bisulfate) 75 Mg Tablet 75 Mg PO DAILYWBKFT Reported Lisinopril 5 Mg Tablet 5 Mg PO DAILY Atorvastatin Calcium 40 Mg Tablet 1 Tab PO HS Lantus Solostar (Insulin Glargine,Hum.rec.anlog) 100 Unit/1 Ml Insuln.pen 40 Unit SQ QHS Fluticasone Propionate Nasal [place] (Fluticasone Propionate) 16 Gm [place].susp 2 [place] NS Vitamin D3 (Cholecalciferol (Vitamin D3)) 1,000 Unit Tablet 1 Tab PO DAILY Cymbalta (Duloxetine Hcl) 60 Mg Capsule.dr 1 Cap PO DAILY Aspirin 325 Mg Tablet 1 Tab PO DAILY Glipizide-Metformin 2.5-500 Mg (Glipizide/Metformin Hcl) 1 Each Tablet 2 Each PO BID Vitals/I & O Vital Sign - Last 24 Hours 11/17/18 11/17/18 11/17/18 11/17/18 17:00 17:09 17:46 18:10 Temp 99.7 99.7 Pulse 91 89 90 89 Resp 20 B/P (MAP) 165/95 (118) 165/95 (118) 155/85 (108) 175/90 (118) Pulse Ox 95 96 96 O2 Delivery Room Air 11/17/18 11/17/18 11/17/18 11/18/18 18:40 22:00 22:36 03:27 Temp 98.3 97.9 98.3 97.9 Pulse 92 79 82 Resp 18 18 B/P (MAP) 160/75 (103) 115/59 (77) 144/77 (99) Pulse Ox 96 92 93 O2 Delivery Room Air Room Air Room Air 11/18/18 11/18/18 11/18/18 11/18/18 07:20 07:25 07:35 08:00 Temp 99.0 99.0 Pulse 86 Resp 20 B/P (MAP) 137/79 (98) Pulse Ox 94 93 O2 Delivery Room Air Room Air Room Air 11/18/18 08:55 Pulse 86 B/P (MAP) 137/79 Intake and Output 11/17/18 11/17/18 11/18/18 15:00 23:00 07:00 Intake Total 2000 ml 300 ml Balance 2000 ml 300 ml CELINE REDMAN MD Nov 18, 2018 11:40
[2018-11-18] MEDS: OSELTAMIVIR 75 MG CAPSULE PO SCH ×2 (12:04→20:57)
[2018-11-18] MEDS ORDERED: KETOROLAC 30 MG/ML VIAL. IV PRN (12:15)
[2018-11-18 15:00] VITALS: BP 159/88
[2018-11-18 19:46] VITALS: BP 140/75
[2018-11-18] MEDS: ATORVASTATIN CALCIUM 40 MG TABLET. PO SCH (20:57)
[2018-11-18] MEDS: INSULIN GLARGINE 300 UNITS/3 ML INSULN.PEN. SQ SCH (21:02)
[2018-11-19] MEDS: ACETAMINOPHEN 325 MG TABLET. PO PRN ×2 (00:01→08:12)
[2018-11-19 03:27] VITALS: BP 147/76
[2018-11-19] MEDS: IV NORMAL SALINE 1000ML BAG 1,000 ML IV SCH (03:30)
[2018-11-19] MEDS: ALBUTEROL SULFATE 2.5 MG/3 ML NEBU. NEB SCH ×3 (07:09→15:10)
[2018-11-19 07:38] VITALS: BP 140/75
[2018-11-19] MEDS: CHOLECALCIFEROL (VITAMIN D3) 1,000 UNIT TABLET PO SCH (08:10)
[2018-11-19] MEDS: FLUTICASONE 50MCG/NASAL SPRAY 16GM BOTTLE. NS SCH (08:10)
[2018-11-19] MEDS: DULoxetine HCL 30 MG CAPSULE.DR PO SCH (08:11)
[2018-11-19] MEDS: CLOPIDOGREL BISULFATE 75 MG TABLET PO SCH (08:11)
[2018-11-19] MEDS: METOPROLOL TART IMMED RELEASE 25 MG TABLET. PO SCH (08:11)
[2018-11-19] MEDS: OSELTAMIVIR 75 MG CAPSULE PO SCH (08:11)
[2018-11-19] MEDS: ASPIRIN 325 MG TABLET PO SCH (08:11)
[2018-11-19] MEDS: INSULIN LISPRO 300 UNITS/3 ML INSULN.PEN. SQ SCH ×4 (08:18→12:23)
--- NOTE | 2018-11-19 08:45 | PDOC ---
PROGRESS NOTES Chief Complaint Chief Complaint Uncontrolled diabetes mellitus type 2 insulin requiring Influenza A Essential hypertension dyslipidemia Moderate dehydration Pseudohyponatremia secondary to hyperglycemia History of Present Illness History of Present Illness 63 year old female with past medical history of DM HTN and dyslipidemia who was in her usual state of health until 3 days prior to her admission when she started complaining of generalized malaise, body aches, runny nose and headaches. The patient's daughter had similar symptoms and most likely was the culprit of the patient's illness. Patient was evaluated in the ED and diagnosed with influenza A since the patient is past the 48 hours window she was initially not given tamiflu She has had decrease in appetite and decrease oral intake as a consequence of her acute illness. She was found to have uncontrolle diabetes mellitus type 2 insulin requiring reason why we were asked to admit the patient for further treatment. She is feeling somewhat better after fluid resuscitation in the ED. 11/18: Still very short of breath and wheezing today. Hypoxic. She is c/o a bad headache and nausea. Headache and nausea resolved. Her O2 saturations are 99% on room air today. Daughter bedside has the flu. Plan: Tamiflu, treated as she was worsening, now she is improved. Ok to d/c with 3 additional days HTN and tachycardia - added metoprolol with good effect, will give script on d/ c home DM - can cont oral meds with her insulin on d/c, better control now 6 minute walk prior to d/c Vitals Vitals Vital Signs Date Time Temp Pulse Resp B/P (MAP) Pulse Ox O2 Delivery O2 Flow Rate FiO2 11/19/18 08:11 93 140/75 11/19/18 07:38 98.1 18 93 Room Air 98.1 Physical Exam General: Alert, Cooperative Heart: Regular rate, No murmurs Lungs: Wheezing Abdomen: Normal bowel sounds, Soft Extremities: No clubbing, No cyanosis Skin: No rashes, No breakdown Labs LABS Laboratory Tests Test 11/18/18 10:55 11/18/18 16:37 11/18/18 20:42 11/19/18 07:26 Glucose (Fingerstick) 240 mg/dL (70-99) 197 mg/dL (70-99) 201 mg/dL (70-99) 202 mg/dL (70-99) Assessment and Plan Assessmemt and Plan Problems Medical Problems: (1) Fever Status: Acute Comment Review of Relevant I have reviewed the following items trixie (where applicable) has been applied. Labs Laboratory Tests Test 11/17/18 16:50 11/17/18 17:15 11/17/18 19:22 11/17/18 20:46 Urine Collection Type Unknown Urine Color Yellow Urine Clarity Clear Urine pH 5.5 Urine Specific [place] >=1.030 Urine Protein Negative mg/dL (NEG-TRACE) Urine Glucose (UA) >=1000 mg/dL (NEG) Urine Ketones (Stick) 15 mg/dL (NEG) Urine Blood Negative (NEG) Urine Nitrite Negative (NEG) Urine Bilirubin Negative (NEG) Urine Urobilinogen Dipstick 0.2 mg/dL (0.2 mg/dL) Urine Leukocyte Esterase Negative (NEG) Urine RBC 0 /HPF (0-2) Urine WBC 0 /HPF (0-4) Urine Squamous Epithelial Cells Few /LPF Urine Bacteria Few /HPF (0-FEW) White Blood Count 5.6 x10^3/uL (4.0-11.0) Red Blood Count 4.57 x10^6/uL (3.50-5.40) Hemoglobin 13.7 g/dL (12.0-15.5) Hematocrit 42.2 % (36.0-47.0) Mean Corpuscular Volume 92 fL (79-100) Mean Corpuscular Hemoglobin 30 pg (25-35) Mean Corpuscular Hemoglobin Concent 33 g/dL (31-37) Red Cell Distribution Width 14.2 % (11.5-14.5) Platelet Count 177 x10^3/uL (140-400) Neutrophils (%) (Auto) 73 % (31-73) Lymphocytes (%) (Auto) 14 % (24-48) Monocytes (%) (Auto) 9 % (0-9) Eosinophils (%) (Auto) 3 % (0-3) Basophils (%) (Auto) 0 % (0-3) Neutrophils # (Auto) 4.1 x10^3uL (1.8-7.7) Lymphocytes # (Auto) 0.8 x10^3/uL (1.0-4.8) Monocytes # (Auto) 0.5 x10^3/uL (0.0-1.1) Eosinophils # (Auto) 0.1 x10^3/uL (0.0-0.7) Basophils # (Auto) 0.0 x10^3/uL (0.0-0.2) Sodium Level 132 mmol/L (136-145) Potassium Level 4.0 mmol/L (3.5-5.1) Chloride Level 94 mmol/L (98-107) Carbon Dioxide Level 27 mmol/L (21-32) Anion Gap 11 (6-14) Blood Urea Nitrogen 16 mg/dL (7-20) Creatinine 1.0 mg/dL (0.6-1.0) Estimated GFR (Cockcroft-Gault) 55.6 BUN/Creatinine Ratio 16 (6-20) Glucose Level 601 mg/dL (70-99) Lactic Acid Level 1.8 mmol/L (0.4-2.0) Calcium Level 8.9 mg/dL (8.5-10.1) Total Bilirubin 0.3 mg/dL (0.2-1.0) Aspartate Amino Transf (AST/SGOT) 55 U/L (15-37) Alanine Aminotransferase (ALT/SGPT) 74 U/L (14-59) Alkaline Phosphatase 266 U/L (46-116) Total Protein 7.2 g/dL (6.4-8.2) Albumin 3.1 g/dL (3.4-5.0) Albumin/Globulin Ratio 0.8 (1.0-1.7) Lipase 105 U/L (73-393) Influenza Type A Antigen Positive (NEGATIVE) Influenza Type B Antigen Negative (NEGATIVE) Glucose (Fingerstick) 353 mg/dL (70-99) 447 mg/dL (70-99) Test 11/17/18 23:00 11/18/18 03:20 11/18/18 07:24 11/18/18 10:55 Lactic Acid Level 0.7 mmol/L (0.4-2.0) White Blood Count 6.3 x10^3/uL (4.0-11.0) Red Blood Count 4.51 x10^6/uL (3.50-5.40) Hemoglobin 13.4 g/dL (12.0-15.5) Hematocrit 41.3 % (36.0-47.0) Mean Corpuscular Volume 92 fL (79-100) Mean Corpuscular Hemoglobin 30 pg (25-35) Mean Corpuscular Hemoglobin Concent 32 g/dL (31-37) Red Cell Distribution Width 14.4 % (11.5-14.5) Platelet Count 175 x10^3/uL (140-400) Neutrophils (%) (Auto) 68 % (31-73) Lymphocytes (%) (Auto) 18 % (24-48) Monocytes (%) (Auto) 11 % (0-9) Eosinophils (%) (Auto) 3 % (0-3) Basophils (%) (Auto) 0 % (0-3) Neutrophils # (Auto) 4.2 x10^3uL (1.8-7.7) Lymphocytes # (Auto) 1.2 x10^3/uL (1.0-4.8) Monocytes # (Auto) 0.7 x10^3/uL (0.0-1.1) Eosinophils # (Auto) 0.2 x10^3/uL (0.0-0.7) Basophils # (Auto) 0.0 x10^3/uL (0.0-0.2) Sodium Level 142 mmol/L (136-145) Potassium Level 3.7 mmol/L (3.5-5.1) Chloride Level 104 mmol/L (98-107) Carbon Dioxide Level 27 mmol/L (21-32) Anion Gap 11 (6-14) Blood Urea Nitrogen 12 mg/dL (7-20) Creatinine 0.7 mg/dL (0.6-1.0) Estimated GFR (Cockcroft-Gault) 84.0 Glucose Level 315 mg/dL (70-99) Calcium Level 8.4 mg/dL (8.5-10.1) Glucose (Fingerstick) 202 mg/dL (70-99) 240 mg/dL (70-99) Test 11/18/18 16:37 11/18/18 20:42 11/19/18 07:26 Glucose (Fingerstick) 197 mg/dL (70-99) 201 mg/dL (70-99) 202 mg/dL (70-99) Laboratory Tests Test 11/18/18 10:55 11/18/18 16:37 11/18/18 20:42 11/19/18 07:26 Glucose (Fingerstick) 240 mg/dL (70-99) 197 mg/dL (70-99) 201 mg/dL (70-99) 202 mg/dL (70-99) Microbiology 11/17/18 Blood Culture - Preliminary, Resulted NO GROWTH AFTER 1 DAY Medications Current Medications Piperacillin Sod/ Tazobactam Sod 4.5 gm/Sodium Chloride 100 ml @ 200 mls/hr 1X ONCE IV ; Start 11/17/18 at 18:00; Stop 11/17/18 at 18:00; Status DC Sodium Chloride 1,000 ml @ 1,000 mls/hr 1X ONCE IV ; Start 11/17/18 at 17:30; Stop 11/17/18 at 17:54; Status DC Acetaminophen (Tylenol) 1,000 mg 1X ONCE PO Last administered on 11/17/18at 18: 33; Start 11/17/18 at 18:00; Stop 11/17/18 at 18:01; Status DC Sodium Chloride 1,000 ml @ 1,000 mls/hr 1X ONCE IV ; Start 11/17/18 at 17:45; Stop 11/17/18 at 17:54; Status DC Sodium Chloride 1,000 ml @ 1,000 mls/hr 1X ONCE IV Last administered on at 18:08; Start 11/17/18 at 18:15; Stop 11/17/18 at 19:14; Status DC Sodium Chloride 1,000 ml @ 1,000 mls/hr 1X ONCE IV Last administered on at 18:08; Start 11/17/18 at 18:15; Stop 11/17/18 at 19:14; Status DC Insulin Human Regular (HumuLIN R VIAL) 10 unit 1X ONCE IV Last administered on 11/17/18at 18:35; Start 11/17/18 at 18:15; Stop 11/17/18 at 18:16; Status DC Aspirin (Karen Aspirin) 325 mg DAILY PO Last administered on 11/19/18at 08:11; Start 11/18/18 at 09:00 Atorvastatin Calcium (Lipitor) 40 mg HS PO Last administered on 11/18/18at 20:57 ; Start 11/17/18 at 21:00 Vitamin D (Vitamin D3) 1,000 unit DAILY PO Last administered on 11/19/18at 08:10 ; Start 11/18/18 at 09:00 Clopidogrel Bisulfate (Plavix) 75 mg DAILYWBKFT PO Last administered on 08:11; Start 11/18/18 at 08:00 Fluticasone Propionate (Flonase) 2 spray DAILY NS Last administered on 08:10; Start 11/18/18 at 09:00 Insulin Glargine (Lantus) 40 units QHS SQ Last administered on 11/18/18 21:02 ; Start 11/17/18 at 21:00 Duloxetine HCl (Cymbalta) 60 mg DAILY PO Last administered on 11/19/18 08:11; Start 11/18/18 at 09:00 Metoprolol Tartrate (Lopressor) 25 mg BID PO Last administered on 11/19/18 08: 11; Start 11/18/18 at 09:00 Labetalol HCl (Normodyne Iv Push) 20 mg PRN Q2HR PRN IVP HYPERTENSION, SEE COMMENTS; Start 11/17/18 at 20:45 Acetaminophen (Tylenol) 650 mg PRN Q6HRS PRN PO pain or temp > 100.4F Last administered on 11/19/18 08:12; Start 11/17/18 at 20:45 Sodium Chloride 1,000 ml @ 100 mls/hr Q10H IV Last administered on 11/19/18 03:30; Start 11/17/18 at 21:30 Morphine Sulfate (Morphine Sulfate) 2 mg PRN Q2HR PRN IV PAIN; Start 11/17/18 at 20:45 Ondansetron HCl (Zofran) 4 mg PRN Q6HRS PRN IV NAUSEA/VOMITING; Start 11/17/18 at 20:45 Ondansetron HCl (Zofran) 4 mg PRN Q8HRS PRN IV NAUSEA/VOMITING; Start 11/17/18 at 21:00; Stop 11/17/18 at 21:00; Status DC Morphine Sulfate (Morphine Sulfate) 4 mg PRN Q2HR PRN IV PAIN; Start 11/17/18 at 21:00; Stop 11/17/18 at 21:00; Status DC Acetaminophen (Tylenol) 650 mg PRN Q4HRS PRN PO FEVER; Start 11/17/18 at 21:00 ; Stop 11/17/18 at 21:00; Status DC Insulin Human Lispro (HumaLOG) 0-9 UNITS TIDWMEALS SQ Last administered on 11/19at 08:19; Start 11/18/18 at 08:00 Dextrose (Dextrose 50%-Water Syringe) 12.5 gm PRN Q15MIN PRN IV SEE COMMENTS; Start 11/17/18 at 21:00 Albuterol Sulfate (Ventolin Neb Soln) 2.5 mg 1X ONCE NEB Last administered on 11/18/18at 07:35; Start 11/18/18 at 07:30; Stop 11/18/18 at 07:31; Status DC Albuterol Sulfate (Ventolin Neb Soln) 2.5 mg RTQID NEB Last administered on at 07:09; Start 11/18/18 at 12:00 Oseltamivir Phosphate (Tamiflu) 75 mg BID PO Last administered on 11/19/18at 08: 11; Start 11/18/18 at 11:45; Stop 11/23/18 at 11:44 Insulin Human Lispro (HumaLOG) 4 units TIDAC SQ Last administered on 11/19/18at 08:18; Start 11/18/18 at 12:00 Ketorolac Tromethamine (Toradol 30mg Vial) 30 mg PRN Q6HRS PRN IV PAIN; Start 11/18/18 at 12:15; Stop 11/23/18 at 12:14 Active Scripts Active Plavix (Clopidogrel Bisulfate) 75 Mg Tablet 75 Mg PO DAILYWBKFT Reported Lisinopril 5 Mg Tablet 5 Mg PO DAILY Atorvastatin Calcium 40 Mg Tablet 1 Tab PO HS Lantus Solostar (Insulin Glargine,Hum.rec.anlog) 100 Unit/1 Ml Insuln.pen 40 Unit SQ QHS Fluticasone Propionate Nasal [place] (Fluticasone Propionate) 16 Gm [place].susp 2 [place] NS Vitamin D3 (Cholecalciferol (Vitamin D3)) 1,000 Unit Tablet 1 Tab PO DAILY Cymbalta (Duloxetine Hcl) 60 Mg Capsule.dr 1 Cap PO DAILY Aspirin 325 Mg Tablet 1 Tab PO DAILY Glipizide-Metformin 2.5-500 Mg (Glipizide/Metformin Hcl) 1 Each Tablet 2 Each PO BID Vitals/I & O Vital Sign - Last 24 Hours 2/23/19 2/23/19 2/23/19 2/23/19 08:55 11:00 11:32 15:00 Temp 98.9 100.2 98.9 100.2 Pulse 86 76 97 Resp 18 16 B/P (MAP) 137/79 107/66 (80) 159/88 (111) Pulse Ox 92 91 O2 Delivery Room Air Room Air Room Air 11/18/18 11/18/18 11/18/18 11/18/18 15:41 19:46 20:00 20:16 Temp 100.5 100.5 Pulse 91 B/P (MAP) 140/75 (96) Pulse Ox 94 93 O2 Delivery Room Air Room Air Room Air Room Air 11/18/18 11/19/18 11/19/18 11/19/18 20:57 03:27 07:10 07:38 Temp 98.2 98.1 98.2 98.1 Pulse 91 77 93 Resp 20 18 B/P (MAP) 140/75 147/76 (99) 140/75 (96) Pulse Ox 94 95 93 O2 Delivery Room Air Room Air Room Air 11/19/18 08:11 Pulse 93 B/P (MAP) 140/75 Intake and Output 11/18/18 11/18/18 11/19/18 15:00 23:00 07:00 Intake Total 250 ml 300 ml 460 ml Balance 250 ml 300 ml 460 ml CELINE REDMAN MD Nov 19, 2018 08:45
[2018-11-19 11:53] VITALS: BP 108/65
[2018-11-19] MEDS ORDERED: METO25TA4 PO (12:46)
[2018-11-19] MEDS ORDERED: OSEL75CA PO (12:46)
[2018-11-19] MEDS ORDERED: ALBU2.5V8 NEB (12:46)
--- NOTE | 2018-11-19 12:50 | PDOC3 ---
Discharge Summary Visit Information Date of Admission: Nov 17, 2018 Date of Discharge: Nov 19, 2018 Admitting Diagnosis: Influenza A, Hyperglycemia, Hypoxia Final Diagnosis Hyperglycemia, Influenza A, Hypoxia Problems Medical Problems: (1) Fever Status: Acute Brief Hospital Course Allergies Allergies Coded Allergies Type Severity Reaction Last Updated Verified No Known Drug Allergies 11/20/15 No Vital Signs Vital Signs Date Time Temp Pulse Resp B/P (MAP) Pulse Ox O2 Delivery O2 Flow Rate FiO2 11/19/18 11:53 97.7 68 20 108/65 (79) 94 Room Air 97.7 Lab Results Laboratory Tests Test 11/17/18 16:50 11/17/18 17:15 11/17/18 19:22 11/17/18 20:46 Urine Collection Type Unknown Urine Color Yellow Urine Clarity Clear Urine pH 5.5 Urine Specific [place] >=1.030 Urine Protein Negative mg/dL (NEG-TRACE) Urine Glucose (UA) >=1000 mg/dL (NEG) Urine Ketones (Stick) 15 mg/dL (NEG) Urine Blood Negative (NEG) Urine Nitrite Negative (NEG) Urine Bilirubin Negative (NEG) Urine Urobilinogen Dipstick 0.2 mg/dL (0.2 mg/dL) Urine Leukocyte Esterase Negative (NEG) Urine RBC 0 /HPF (0-2) Urine WBC 0 /HPF (0-4) Urine Squamous Epithelial Cells Few /LPF Urine Bacteria Few /HPF (0-FEW) White Blood Count 5.6 x10^3/uL (4.0-11.0) Red Blood Count 4.57 x10^6/uL (3.50-5.40) Hemoglobin 13.7 g/dL (12.0-15.5) Hematocrit 42.2 % (36.0-47.0) Mean Corpuscular Volume 92 fL (79-100) Mean Corpuscular Hemoglobin 30 pg (25-35) Mean Corpuscular Hemoglobin Concent 33 g/dL (31-37) Red Cell Distribution Width 14.2 % (11.5-14.5) Platelet Count 177 x10^3/uL (140-400) Neutrophils (%) (Auto) 73 % (31-73) Lymphocytes (%) (Auto) 14 % (24-48) Monocytes (%) (Auto) 9 % (0-9) Eosinophils (%) (Auto) 3 % (0-3) Basophils (%) (Auto) 0 % (0-3) Neutrophils # (Auto) 4.1 x10^3uL (1.8-7.7) Lymphocytes # (Auto) 0.8 x10^3/uL (1.0-4.8) Monocytes # (Auto) 0.5 x10^3/uL (0.0-1.1) Eosinophils # (Auto) 0.1 x10^3/uL (0.0-0.7) Basophils # (Auto) 0.0 x10^3/uL (0.0-0.2) Sodium Level 132 mmol/L (136-145) Potassium Level 4.0 mmol/L (3.5-5.1) Chloride Level 94 mmol/L (98-107) Carbon Dioxide Level 27 mmol/L (21-32) Anion Gap 11 (6-14) Blood Urea Nitrogen 16 mg/dL (7-20) Creatinine 1.0 mg/dL (0.6-1.0) Estimated GFR (Cockcroft-Gault) 55.6 BUN/Creatinine Ratio 16 (6-20) Glucose Level 601 mg/dL (70-99) Lactic Acid Level 1.8 mmol/L (0.4-2.0) Calcium Level 8.9 mg/dL (8.5-10.1) Total Bilirubin 0.3 mg/dL (0.2-1.0) Aspartate Amino Transf (AST/SGOT) 55 U/L (15-37) Alanine Aminotransferase (ALT/SGPT) 74 U/L (14-59) Alkaline Phosphatase 266 U/L (46-116) Total Protein 7.2 g/dL (6.4-8.2) Albumin 3.1 g/dL (3.4-5.0) Albumin/Globulin Ratio 0.8 (1.0-1.7) Lipase 105 U/L (73-393) Influenza Type A Antigen Positive (NEGATIVE) Influenza Type B Antigen Negative (NEGATIVE) Glucose (Fingerstick) 353 mg/dL (70-99) 447 mg/dL (70-99) Test 11/17/18 23:00 11/18/18 03:20 11/18/18 07:24 11/18/18 10:55 Lactic Acid Level 0.7 mmol/L (0.4-2.0) White Blood Count 6.3 x10^3/uL (4.0-11.0) Red Blood Count 4.51 x10^6/uL (3.50-5.40) Hemoglobin 13.4 g/dL (12.0-15.5) Hematocrit 41.3 % (36.0-47.0) Mean Corpuscular Volume 92 fL (79-100) Mean Corpuscular Hemoglobin 30 pg (25-35) Mean Corpuscular Hemoglobin Concent 32 g/dL (31-37) Red Cell Distribution Width 14.4 % (11.5-14.5) Platelet Count 175 x10^3/uL (140-400) Neutrophils (%) (Auto) 68 % (31-73) Lymphocytes (%) (Auto) 18 % (24-48) Monocytes (%) (Auto) 11 % (0-9) Eosinophils (%) (Auto) 3 % (0-3) Basophils (%) (Auto) 0 % (0-3) Neutrophils # (Auto) 4.2 x10^3uL (1.8-7.7) Lymphocytes # (Auto) 1.2 x10^3/uL (1.0-4.8) Monocytes # (Auto) 0.7 x10^3/uL (0.0-1.1) Eosinophils # (Auto) 0.2 x10^3/uL (0.0-0.7) Basophils # (Auto) 0.0 x10^3/uL (0.0-0.2) Sodium Level 142 mmol/L (136-145) Potassium Level 3.7 mmol/L (3.5-5.1) Chloride Level 104 mmol/L (98-107) Carbon Dioxide Level 27 mmol/L (21-32) Anion Gap 11 (6-14) Blood Urea Nitrogen 12 mg/dL (7-20) Creatinine 0.7 mg/dL (0.6-1.0) Estimated GFR (Cockcroft-Gault) 84.0 Glucose Level 315 mg/dL (70-99) Calcium Level 8.4 mg/dL (8.5-10.1) Glucose (Fingerstick) 202 mg/dL (70-99) 240 mg/dL (70-99) Test 11/18/18 16:37 11/18/18 20:42 11/19/18 07:26 11/19/18 11:34 Glucose (Fingerstick) 197 mg/dL (70-99) 201 mg/dL (70-99) 202 mg/dL (70-99) 237 mg/dL (70-99) Laboratory Tests Test 11/18/18 16:37 11/18/18 20:42 11/19/18 07:26 11/19/18 11:34 Glucose (Fingerstick) 197 mg/dL (70-99) 201 mg/dL (70-99) 202 mg/dL (70-99) 237 mg/dL (70-99) Brief Hospital Course 63 year old female with past medical history of DM HTN and dyslipidemia who was in her usual state of health until 3 days prior to her admission when she started complaining of generalized malaise, body aches, runny nose and headaches. The patient's daughter had similar symptoms and most likely was the culprit of the patient's illness. Patient was evaluated in the ED and diagnosed with influenza A since the patient is past the 48 hours window she was initially not given tamiflu She has had decrease in appetite and decrease oral intake as a consequence of her acute illness. She was found to have uncontrolle diabetes mellitus type 2 insulin requiring reason why we were asked to admit the patient for further treatment. She is feeling somewhat better after fluid resuscitation in the ED. 11/18: Still very short of breath and wheezing today. Hypoxic. She is c/o a bad headache and nausea. Headache and nausea resolved. Her O2 saturations are 99% on room air today. Daughter bedside has the flu. Plan: Tamiflu, treated as she was worsening, now she is improved. Ok to d/c with 3 additional days HTN and tachycardia - added metoprolol with good effect, will give script on d/ c home DM - can cont oral meds with her insulin on d/c, better control now 6 minute walk prior to d/c was normal Greater than 30 minutes spent on discharge including planning, meds and education. Discharge Information Condition at Discharge: Improved Follow Up: Weeks (2) Disposition/Orders: D/C to Home Scheduled Albuterol Sulfate (Proair Hfa) 8.5 Gm Hfa.aer.ad, 2.5 MG NEB RTQID for Bronchitis, #1 Prescribed by: CELINE REDMAN MD on 11/19/18 1246 Aspirin (Aspirin) 325 Mg Tablet, 1 TAB PO DAILY, #30 Ref 5 (Reported) Entered as Reported by: JULIO BURGER on 11/18/15818 Last Action: Reviewed on 11/17/182254 by CEZAR THOMAS Atorvastatin Calcium (Atorvastatin Calcium) 40 Mg Tablet, 1 TAB PO HS, #30 Ref 5 (Reported) Entered as Reported by: JODY BARONE on 01/02/16809 Last Action: Reviewed on 11/17/182254 by CEZAR THOMAS Cholecalciferol (Vitamin D3) (Vitamin D3) 1,000 Unit Tablet, 1 TAB PO DAILY, # 30 Ref 5 (Reported) Entered as Reported by: JULIO BURGER on 11/18/15818 Last Action: Reviewed on 11/17/182254 by CEZAR THOMAS Clopidogrel Bisulfate (Plavix) 75 Mg Tablet, 75 MG PO DAILYWBKFT, #30 Ref 8 Prescribed by: Breanna Conway on 05/24/14 1053 Last Action: Reviewed on 11/17/182154 by CEZAR THOMAS Duloxetine Hcl (Cymbalta) 60 Mg Capsule.dr, 1 CAP PO DAILY, #90 Ref 3 (Reported) Entered as Reported by: JULIO BURGER on 11/18/15818 Last Action: Reviewed on 11/17/182254 by CEZAR THOMAS Glipizide/Metformin Hcl (Glipizide-Metformin 2.5-500 Mg) 1 Each Tablet, 2 EACH PO BID, (Reported) Entered as Reported by: JULIO BURGER on 05/23/14 1033 Last Action: Reviewed on 11/17/182254 by CEZAR THOMAS Insulin Glargine,Hum.rec.anlog (Lantus Solostar) 100 Unit/1 Ml Insuln.pen, 40 UNIT SQ QHS, #15 Ref 3 (Reported) Entered as Reported by: JODY BARONE on 01/02/16809 Last Action: Reviewed on 11/17/182254 by CEZAR THOMAS Lisinopril (Lisinopril) 5 Mg Tablet, 5 MG PO DAILY for hypertension, (Reported) Entered as Reported by: CEZAR THOMAS on 11/17/182254 Last Action: New Order on 11/17/182254 by CEZAR THOMAS Metoprolol Tartrate (Metoprolol Tartrate) 25 Mg Tablet, 25 MG PO BID for HTN for 30 Days, #60 Prescribed by: CELINE REDMAN MD on 11/19/18 1246 Oseltamivir Phosphate (Tamiflu) 75 Mg Capsule, 75 MG PO BID for INFLUENZA A for 3 Days, #6 Prescribed by: CELINE REDMAN MD on 11/19/18 1246 Miscellaneous Medications Fluticasone Propionate (Fluticasone Propionate Nasal [place]) 16 Gm [place].susp, 2 SPRAY NS, #1 Ref 11 (Reported) Entered as Reported by: JODY BARONE on 01/02/16 0810 Last Action: Reviewed on 11/17/18 2082 by CELINE CHRISTOPHER MD Nov 19, 2018 12:50
--- NOTE | 2018-11-19 16:14 | NUR ---
Pt was discharged home with self care. she was given 3 scripts to take to the pharmacy, tamiflu, proair NEB and metoprolol. Wheeled down to the main entrance and taken home by her grandaughter. Ricardo Polanco RN
== END 2018-11-19 16:15 | disposition home or self-care (01) | DRG 193 ==
LOC: ER 16:47 → 6 SOUTH 19:26
PROVIDERS: ADMIT Internal Medicine; ATTEND Internal Medicine
DX: J10.1 Influenza due to other identified influenza virus with other respiratory manifestations (principal); E11.00 Type 2 diabetes mellitus with hyperosmolarity without nonketotic hyperglycemic-hyperosmolar coma (NKHHC); E11.65 Type 2 diabetes mellitus with hyperglycemia; E78.00 Pure hypercholesterolemia, unspecified; E78.5 Hyperlipidemia, unspecified; E86.0 Dehydration; I10 Essential (primary) hypertension; I25.10 Atherosclerotic heart disease of native coronary artery without angina pectoris; M79.7 Fibromyalgia; R09.02 Hypoxemia; Z79.4 Long term (current) use of insulin; Z86.73 Personal history of transient ischemic attack (TIA), and cerebral infarction without residual deficits; Z98.51 Tubal ligation status; Z79.899 Other long term (current) drug therapy
CPT/HCPCS: 36415; 71046; 80048; 80053; 81001; 82962; 83605; 83690; 85025; 87040; 87804; 94618; 94640; 94760; 96361; 96372; 96374; J1815; J7030; J7613; 99285-25

== ENCOUNTER → 2019-01-01 | Outpatient (CLI) | payer MEDICARE, OTHER ==
[~2019-01-01] MED LIST changes: +ALBU2.5V8 NEB; +LISI-338 PO; +METO25TA4 PO; +OSEL75CA PO
--- NOTE | 2019-01-01 09:20 | CARD ---
MR#: [id number] Date of Study: 01/01/2019 Ordering Physician: MELA MOHAN, Referring Physician: MELA MOHAN Tech: Nithya Knowles RDCS APPROVED REPORT EXAM: Two-dimensional and M-mode echocardiogram with Doppler and color Doppler. Other Information Quality : Good INDICATION Cardiac Disease: CAD 2D DIMENSIONS RVDd3.0 (2.9-3.5cm)Left Atrium(2D)3.8 (1.6-4.0cm) IVSd1.2 (0.7-1.1cm)Aortic Root(2D)2.8 (2.0-3.7cm) LVDd4.0 (3.9-5.9cm)LVOT Diameter1.9 (1.8-2.4cm) PWd0.9 (0.7-1.1cm)LVDs2.3 (2.5-4.0cm) FS (%) 30.0 %SV52.7 ml LVEF(%)60.0 (>50%) Aortic Valve AoV Peak Ángel.107.6cm/sAoV VTI24.7cm AO Peak GR.4.6mmHgLVOT Peak Ángel.78.7cm/s LVOT VTI 19.30cmAO Mean GR.3mmHg MARIIA (VMAX)2.96zv5EWC (VTI)2.21cm2 Mitral Valve MV E Wiqcsvvv56.1cm/sMV DECEL ANBP203uf MV A Oxzmtnjb01.8cm/sMV VLI99ap E/A Ratio1.0MVA (PHT)4.07cm2 TDI E/Lateral E'9.2E/Medial E'12.3 Tricuspid Valve TR P. Ivpbmoph539mn/sRAP [id number] TR Peak Gr.35efRtNIRI19hwWo Pulmonary Vein S1 Zmdsuctr74.0cm/sD2 Rhnmdrxq77.5cm/s LEFT VENTRICLE The left ventricle is normal size. There is mild asymmetric septal hypertrophy. The left ventricular systolic function is normal. The Ejection Fraction is 55-60%. There is normal LV segmental wall motio n. RIGHT VENTRICLE The right ventricle is normal size. The right ventricular systolic function is normal. ATRIA The left atrium size is normal. The right atrium size is normal. The interatrial septum is intact wit h no evidence for an atrial septal defect or patent foramen ovale as noted on 2-D or Doppler imaging. AORTIC VALVE The aortic valve is calcified but opens well. Doppler and Color Flow revealed no significant aortic r egurgitation. There is no significant aortic valvular stenosis. MITRAL VALVE The mitral valve is calcified but opens well. There is no evidence of mitral valve prolapse. There is no mitral valve stenosis. Doppler and Color-flow revealed trace mitral regurgitation. TRICUSPID VALVE The tricuspid valve is normal in structure and function. Doppler and Color Flow revealed trace tricus pid regurgitation. The PA pressure was estimated at 25 mmHg. There is no tricuspid valve stenosis. PULMONIC VALVE The pulmonic valve is not well visualized. Doppler and Color Flow revealed trace pulmonic valvular re gurgitation. There is no pulmonic valvular stenosis. GREAT VESSELS The aortic root is normal in size. The ascending aorta is mildly dilated at 3.6 cm. The IVC is normal in size and collapses >50% with inspiration. PERICARDIAL EFFUSION There is no evidence of significant pericardial effusion. Critical Notification Critical Value: No <Conclusion> The left ventricular systolic function is normal. The Ejection Fraction is 55-60%. There is normal LV segmental wall motion. Trace mitral regurgitation. Trace tricuspid regurgitation. The PA pressure was estimated at 25 mmHg. There is no evidence of significant pericardial effusion. Signed by : Mela Mohan, Electronically Approved : 01/01/2019 09:20:01
== END | disposition home or self-care (01) ==
LOC: ECHO 08:28
PROVIDERS: ATTEND Internal Medicine Cardiovascular Disease
DX: I70.0 Atherosclerosis of aorta (principal); I25.10 Atherosclerotic heart disease of native coronary artery without angina pectoris
CPT/HCPCS: 93306

== ENCOUNTER → 2019-07-04 | Outpatient (CLI) | payer MEDICARE, OTHER ==
[~2019-07-04] MED LIST changes: -PANT40TA3 PO; +PANT40TA77 PO; +REGADENOSON 0.4 MG/5 ML DISP.SYRIN. IV ONE
--- NOTE | 2019-07-04 13:49 | RAD ---
MR#: [id number] Date of Study: 07/04/2019 Ordering Physician: MELA MOHAN Referring Physician: MARGE DOAN Tech: RT Tamanna JoseR) (N) APPROVED REPORT Test Type: Pharmacological Stress Nurse/Tech: Calista Grajeda R.N. Test Indications: cad Cardiac History: htn, prior stents, dm Medications: see ehr Medical History: see ehr Resting ECG: sr Resting Heart Rate: 83 bpm Resting Blood Pressure: 109/69mmHg Pretest Chest Pain: No chest pain Nurse/Tech Notes lungs cta, heart tones regular Consent: The procedure was explained to the patient in lay terms. Informed consent was witnessed. [place] eout was entered into [employer]. History and Stress Test performed by RT Jose (R) (N) Pharm. Details Pharmacologic stress testing was performed using 0.4mg per 5ml of regadenoson given intravenously ove r 7-10 seconds. Stress Symptoms No chest pain or symptoms. POST EXERCISE Reason for Termination: Infusion complete Target HR: No Max HR: 112 bpm Max Blood Pressure: 125/70mmHg Chest Pain: No. Arrhythmia: Yes. unifocal pvcs noted throughout ST Change: No. INTERPRETATION Stress EKG Conclusion: The resting EKG shows a sinus rhythm with mild nonspecific T-wave changes. The stress EKG shows no significant changes from baseline. No EKG evidence of stress-induced ischemia. Imaging Protocol IMAGE PROTOCOL: Rest Tc-99m/stress Tc-99m 1 day Rest: Stress: Viability: Radiopharm.Tc99m NayzjmshtGk89u Sestamibi Mxjp01iRj 32.3mCi Duration 15min. 15min. Img Date 07/04/2019 07/04/2019 Inj-Img Xcos74tyk. 60min. Rest Admin Site:IV - Left AntecubitalAdministrator:RT Rebeca (R)(N) Stress Admin Site: IV - Left AntecubitalAdministrator: RT Jas Garcia)(N) STRESS DATA End Diast. Vol.35.0mlLVEDV index BSA18.0ml End Syst. Vol.4.0mlLVESV index BSA2.0ml Myocardial Mass78.0gEject. Ptikmsnm93.0% Stress Scores Regional WT0.00Summed WT5.00 Regional WM0.00Summed WM0.00 LV Perfusion The stress scans show no significant defects. The rest scans show no definite significant defects. Nuclear imaging shows no reversible ischemia or infarct. Wall Motion Left ventricular systolic function is normal with an ejection fraction of greater than 70%. LV Perf. Quant 17 Seg. SSS1.00 17 Seg. SRS0.00 17 Seg. SDS1.00 Stress Defect Extent (% LAD)0.00Rest Defect Extent (% LAD)0.00Rev. Defect Extent (% LAD)0.00 Stress Defect Extent (% LCX) 11.30Rest Defect Extent (% LCX)13.80Rev. Defect Extent (% LCX)2.50 Stress Defect Extent (% RCA)0.00Rest Defect Extent (% RCA)0.00Rev. Defect Extent (% RCA)0.00 Stress Defect Extent (% SAVANA)2.00Rest Defect Extent (% SAVANA)2.40Rev. Defect Extent (% SAVANA)0.40 Conclusion 1. No EKG evidence of stress-induced ischemia. 2. Nuclear imaging shows no reversible ischemia or infarct. 3. Left ventricular systolic function is normal with an ejection fraction of greater than 70%. 4. Low risk Lexiscan nuclear stress test. Signed by : John Hylton MD Electronically Approved : 07/04/2019 13:48:49
== END | disposition home or self-care (01) ==
LOC: NM 08:38
PROVIDERS: ATTEND Internal Medicine Cardiovascular Disease
DX: I25.10 Atherosclerotic heart disease of native coronary artery without angina pectoris (principal); I10 Essential (primary) hypertension
CPT/HCPCS: 78452; 93017; A9500; J2785

== ENCOUNTER → 2020-08-01 | Outpatient (CLI) | payer MEDICARE, OTHER ==
--- NOTE | 2020-08-01 14:58 | CARD ---
MR#: [id number] Date of Study: 08/01/2020 Ordering Physician: MELA MOHAN, Referring Physician: MELA MOHAN, Tech: Marina Segovia APPROVED REPORT EXAM: Two-dimensional and M-mode echocardiogram with Doppler and color Doppler. Other Information Quality : AverageHR: 68bpm Technically limited study due to body habitus. INDICATION Cardiac Disease: CAD RISK FACTORS Hypertension Hyperlipidemia Diabetes 2D DIMENSIONS RVDd3.8 (2.9-3.5cm)Left Atrium(2D)3.5 (1.6-4.0cm) IVSd1.1 (0.7-1.1cm)Aortic Root(2D)3.1 (2.0-3.7cm) LVDd4.2 (3.9-5.9cm)LVOT Diameter2.0 (1.8-2.4cm) PWd0.9 (0.7-1.1cm)LVDs3.1 (2.5-4.0cm) FS (%) 26.0 %SV39.4 ml Aortic Valve AoV Peak Ángel.128.9cm/sAoV VTI28.8cm AO Peak GR.6.7mmHgLVOT Peak Ángel.88.7cm/s LVOT VTI 21.07cmAO Mean GR.4mmHg MARIIA (VMAX)1.43tn1ZDS (VTI)2.27cm2 Mitral Valve MV E Ggtrvcmx49.3cm/sMV DECEL FOBN287ba MV A Wakzdaii08.4cm/sMV XYK80zl E/A Ratio0.9MVA (PHT)3.45cm2 TDI E/Lateral E'9.0E/Medial E'10.8 Pulmonary Valve PV Peak Rngegjhr28.7cm/sPV Peak Grad.3mmHg Tricuspid Valve TR P. Nyvyyxtx227go/sRAP HAOBFPZK9rsEw TR Peak Gr.39eiLxGLRR79fhQg Pulmonary Vein S1 Fyztrsjn73.4cm/sD2 Izwbjxax43.2cm/s PVa [id number] LEFT VENTRICLE The left ventricle is normal size. There is borderline concentric left ventricular hypertrophy. The l eft ventricular systolic function is normal and the ejection fraction is within normal range. The Eje ction Fraction is 50-55%. There is normal LV segmental wall motion. Transmitral Doppler flow pattern is Grade II-pseudonormal filling dynamics. RIGHT VENTRICLE The right ventricle is normal size. There is normal right ventricular wall thickness. The right ventr icular systolic function is normal. ATRIA The left atrium size is normal. The right atrium size is normal. The interatrial septum is intact wit h no evidence for an atrial septal defect or patent foramen ovale as noted on 2-D or Doppler imaging. AORTIC VALVE The aortic valve is thickened but opens well. Doppler and Color Flow revealed trace aortic regurgitat ion. There is no significant aortic valvular stenosis. Calculated aortic valve area is 2.4 cm2 with m aximum pressure gradient of 8 mmHg and mean pressure gradient of 5 mmHg. MITRAL VALVE The mitral valve is thickened but opens well. There is no evidence of mitral valve prolapse. There is no mitral valve stenosis. Doppler and Color-flow revealed trace mitral regurgitation. TRICUSPID VALVE The tricuspid valve is normal in structure and function. Doppler and Color Flow revealed trace tricus pid regurgitation with an estimated PAP of 25 mmHg. There is no tricuspid valve stenosis. PULMONIC VALVE The pulmonic valve is not well visualized. Doppler and Color Flow revealed trace pulmonic valvular re gurgitation. GREAT VESSELS The aortic root is normal in size. The ascending aorta is mildly dilated measuring 3.7 cm. The IVC is normal in size and collapses >50% with inspiration. PERICARDIAL EFFUSION There is no evidence of significant pericardial effusion. Critical Notification Critical Value: No <Conclusion> The left ventricle is normal size. The left ventricular systolic function is normal and the ejection fraction is within normal range. The Ejection Fraction is 50-55%. There is borderline concentric left ventricular hypertrophy. Doppler and Color Flow revealed trace aortic regurgitation. There is no significant aortic valvular stenosis. Doppler and Color-flow revealed trace mitral regurgitation. Doppler and Color Flow revealed trace tricuspid regurgitation with an estimated PAP of 25 mmHg. The ascending aorta is mildly dilated measuring 3.7 cm. Signed by : John Hylton MD Electronically Approved : 08/01/2020 14:57:53
--- NOTE | 2020-08-01 16:26 | RAD ---
MR#: [id number] Date of Study: 08/01/2020 Ordering Physician: MELA MOHAN, Referring Physician: MARGE DOAN Tech: BRENDA Corral ARRT (R) (N) APPROVED REPORT Test Type: Pharmacological Stress Nurse/Tech: Michelle Stein RN Test Indications: CAD Cardiac History: Cardiac stent, HTN, See EMR Medications: ASA, See EMR Medical History: DM, See EMR Resting ECG: SR Resting Heart Rate: 65 bpm Resting Blood Pressure: 144/80mmHg Pretest Chest Pain: No chest pain Nurse/Tech Notes Lungs CTA, Heart tones regular. Consent: The procedure was explained to the patient in lay terms. Informed consent was witnessed. [place] eout was entered into [employer]. History and Stress Test performed by RT Jose (R) (N) Pharm. Details Pharmacologic stress testing was performed using 0.4mg per 5ml of regadenoson given intravenously ove r 7-10 seconds. Stress Symptoms No chest pain or symptoms. POST EXERCISE Reason for Termination: Infusion complete Max HR: 90 bpm Max Blood Pressure: 160/79mmHg Blood Pressure response to exercise: Normal blood pressure response during stress. Heart Rate response to exercise: WNL Chest Pain: No. Arrhythmia: No. ST Change: No. INTERPRETATION Stress EKG Conclusion: The resting EKG shows a normal sinus rhythm. The stress EKG shows no significant changes from baseline. No EKG evidence of stress-induced ischemia. Imaging Protocol IMAGE PROTOCOL: Rest Tc-99m/stress Tc-99m 1 day Rest: Stress: Viability: Radiopharm.Tc99m FegqsikbmAp75y Sestamibi Ldtm92fBz 31.6mCi Img Date 08/01/2020 08/01/2020 Rest Admin Site:IV - Left AntecubitalAdministrator:BRENDA Corral, KATIA (R)(N) Stress Admin Site: IV - Left AntecubitalAdministrator: RT Jas Garcia)(N) STRESS DATA End Diast. Vol.56.0mlAv. Heart Rate75.0bpm End Syst. Vol.1.0mlCO Index BSA0.0L/min Myocardial Ekak697.0gEject. Iqytbptm55.0% Stress Rates Pk. Fill Rate3.11EDV/secLVtime Pk. Fill 211.96msec Pk. Empty Rate4.46ESV/secLVtime Pk. Vjvbs365.31msec 1/3 Pk. Fill1.31EDV/sec Stress Scores Regional WT0.00Summed WT0.00 Regional WM0.00Summed WM0.00 LV Perfusion The stress scans showed no significant defects. The rest scans showed no significant defects. Nuclear imaging shows no reversible ischemia or infarct. Wall Motion Left ventricular systolic function is normal with an ejection fraction of greater than 70%. LV Perf. Quant 17 Seg. SSS0.00 17 Seg. SRS1.00 17 Seg. SDS0.00 Stress Defect Extent (% LAD)0.00Rest Defect Extent (% LAD)0.00Rev. Defect Extent (% LAD)0.00 Stress Defect Extent (% LCX) 5.00Rest Defect Extent (% LCX)7.50Rev. Defect Extent (% LCX)0.00 Stress Defect Extent (% RCA)0.00Rest Defect Extent (% RCA)0.00Rev. Defect Extent (% RCA)0.00 Stress Defect Extent (% SAVANA)0.90Rest Defect Extent (% SAVANA)2.20Rev. Defect Extent (% SAVANA)0.00 Conclusion 1. No EKG evidence of stress-induced ischemia. 2. Nuclear imaging shows no reversible ischemia or infarct. 3. Normal left ventricular systolic function with an ejection fraction of greater than 70%. 4. Low risk Lexiscan nuclear stress test. Signed by : John Hylton MD Electronically Approved : 08/01/2020 16:26:01
== END ==
LOC: NM 07:39
PROVIDERS: ATTEND Internal Medicine Cardiovascular Disease
DX: I25.10 Atherosclerotic heart disease of native coronary artery without angina pectoris (principal); I11.9 Hypertensive heart disease without heart failure
CPT/HCPCS: 78452; 93017; 93306; A9500; J2785

== ENCOUNTER → 2020-08-26 | Outpatient (CLI) | payer MEDICARE, OTHER ==
[~2020-08-26] MED LIST changes: -REGADENOSON 0.4 MG/5 ML DISP.SYRIN. IV ONE
[2020-08-26 12:18] LABS: CHOLESTEROL/HDL RATIO 4.5
--- NOTE | 2020-08-26 14:58 | RAD ---
MR#: [id number] Date of Study: 08/26/2020 Ordering Physician: MELA MOHAN, Referring Physician: MELA MOHAN, Tech: Marina Lau RDMS, RVT, RTR APPROVED REPORT Patient Location : OUT-PATIENT Indications Lower Extremity Edema : Bilateral Greater Saphenous Veins (GSV) Significant venous relux noted in the RIGHT GSV at the following levels : Superficial Femoral Junctio n, Proximal Thigh, Mid Thigh, Distal Thigh, Proximal Calf, Mid Calf, Distal Calf Significant venous relux noted in the LEFT GSV at the following levels : Superficial Femoral Junction , Proximal Thigh, Mid Thigh, Distal Thigh, Proximal Calf, Mid Calf, Distal Calf Findings Grayscale images of the bilateral saphenofemoral junctions are grossly unremarkable. The right great saphenous vein measures 5.4 mm in the left great saphenous vein measures 5.8 mm. The bilateral greater saphenous veins are notable for reflux at 2.3 seconds on the right and 2.4 seco nds on the left. Bilateral lesser saphenous veins did not show any evidence of reflux. Critical Notification Critical Value: No <Conclusion> 1. Positive for reflux in the bilateral greater saphenous veins. Signed by : Felipe Scherer, Electronically Approved : 08/26/2020 14:57:50
== END ==
LOC: US 11:07
PROVIDERS: ATTEND Internal Medicine Cardiovascular Disease
DX: I87.2 Venous insufficiency (chronic) (peripheral) (principal); E78.5 Hyperlipidemia, unspecified
CPT/HCPCS: 36415; 80061; 93970

== ENCOUNTER → 2020-12-24 | Outpatient (CLI) | payer MEDICARE, OTHER ==
[~2020-12-24] MED LIST changes: -LISI-338 PO; +LISI-517 PO
--- NOTE | 2020-12-24 11:27 | RAD ---
INDICATION: Reason: Post Op Vena Seal Ablation of Bilat GSV's; Eval for DVT / Spl. Instructions: Pt h as Venous Insufficiency / History: COMPARISON: August 26, 2020 TECHNIQUE: Grayscale, color and doppler ultrasound images were obtained of the bilateral lower extrem ity venous vasculature. RIGHT: No thrombus identified in the common femoral vein, femoral vein, popliteal vein or visualized calf ve ins. LEFT: No thrombus identified in the common femoral vein, femoral vein, popliteal vein or visualized calf ve ins. IMPRESSION: * No thrombus identified in deep venous system of bilateral lower extremities. * Occluded greater saphenous vein bilaterally as expected postoperatively. Electronically signed by: Rakesh Staton MD (12/24/2020 11:25 AM) [id number]
== END ==
LOC: US 10:38
PROVIDERS: ATTEND Internal Medicine Cardiovascular Disease
DX: I82.813 Embolism and thrombosis of superficial veins of lower extremities, bilateral (principal); I87.2 Venous insufficiency (chronic) (peripheral)
CPT/HCPCS: 93970

== ENCOUNTER → 2021-07-08 | Outpatient (CLI) | payer MEDICARE, OTHER ==
[~2021-07-08] MED LIST changes: -DULO60CA6 PO; +DULO60CA7 PO
--- NOTE | 2021-07-08 11:31 | KCIC ---
Examination: MRI of the left mid foot HISTORY: History of left foot pain COMPARISON: None available TECHNIQUE: Multiplanar, multisequence MR imaging of the left mid foot without contrast FINDINGS: The anterior and posterior talofibular and tibiofibular ligaments appear intact. The alignment of the tarsal bones grossly appears unremarkable. The visualized flexor tendons grossly appears unremarkabl e. The attachment of the peroneus longus, peroneal brevis tendon appears intact. The Lisfranc ligament is intact There is moderate increased T2 signal with thickened appearance of the anterior tibialis tendon likel y moderate tendinosis mild surrounding edema. The distal attachment of the anterior tibialis tendon appears intact. Mild increased T2 signal/edema identified in the dorsal aspect of the foot. IMPRESSION: 1. Moderate increased T2 signal with thickened appearance of the anterior tibialis tendon likely mod erate tendinosis with mild surrounding edema. 2. Mild increased T2 signal/edema identified in the dorsal aspect of the foot. Electronically signed by: Jerome Gonzalez MD (07/08/2021 11:29 AM) [id number]
== END ==
LOC: KCIC MRI 09:07
PROVIDERS: ATTEND Podiatrist
DX: M79.672 Pain in left foot (principal)
CPT/HCPCS: 73718

== ENCOUNTER → 2022-01-18 | Outpatient (CLI) | payer MEDICARE, OTHER ==
[~2022-01-18] MED LIST changes: -LISI-517 PO; +LISI5TAB15 PO
--- NOTE | 2022-01-18 15:49 | RAD ---
US VENOUS REFLUX History: Reason: Continued edema; discoloration post Bilat GSV ablation 2020 / . Instructions: / History: Comparison: None. Discussion: Multiple longitudinal and transverse high resolution real-time images of the superficial venous syste m of bilateral lower extremity were obtained. Bilateral greater saphenous vein ablation. Superficial thrombosis within the bilateral lesser sapheno us veins. Reflux into life skills coordinator in the left calf 19 cm proximal. Impression: 1. Bilateral greater saphenous vein ablation. 2. Bilateral lesser saphenous vein superficial thrombosis. 3. Pearl Peller noted within the left calf. Electronically signed by: Lucas Rodriguez DO (01/18/2022 3:46 PM) [id number]
== END ==
LOC: US 08:35
PROVIDERS: ATTEND Internal Medicine Cardiovascular Disease
DX: I82.813 Embolism and thrombosis of superficial veins of lower extremities, bilateral (principal); I87.323 Chronic venous hypertension (idiopathic) with inflammation of bilateral lower extremity
CPT/HCPCS: 93970

== ENCOUNTER → 2022-01-20 | Outpatient (CLI) | payer MEDICARE, OTHER ==
--- NOTE | 2022-01-21 10:09 | RAD ---
MR#: [id number] Date of Study: 01/20/2022 Ordering Physician: MELA BRAND, Referring Physician: MELA BRAND, Tech: Jorge Malhotra MBA, RDMS, RVT, RDCS, RTR APPROVED REPORT Patient Location: OUT-PATIENT Indications PAD Findings The right ankle brachial index is 1.1. The left ankle-brachial index is 1.2. No significant periphe ral artery stenosis. Critical Notification Critical Value: No <Conclusion> Bilateral lower extremity ankle-brachial indices are within normal limits and not suggestive of any s ignificant peripheral artery stenosis. Signed by : Mela Brand, Electronically Approved : 01/21/2022 10:08:53
--- NOTE | 2022-01-21 12:35 | RAD ---
MR#: [id number] Date of Study: 01/20/2022 Ordering Physician: MELA BRAND, Referring Physician: MELA BRAND, Tech: Jorge Malhotra MBA, RDMS, RVT, RDCS, RTR APPROVED REPORT Patient Location: OUT-PATIENT Indications PAD VELOCITY AND DOPPLER WAVEFORM ANALYSIS RIGHT cm/secWaveformSeverity LEFT cm/secWaveform Severity dCFA 199.0TriphasicdCFA 95.0Biphasic Prof Fem Art. 70.0BiphasicProf Fem Art. 95.0Biphasic Fem Art Prox. 116.0BiphasicFem Art Prox. 101.0Biphasic Fem Art Mid. 120.0BiphasicFem Art Mid. 95.0Biphasic Fem Art Dist. 81.0BiphasicFem Art Dist. 77.0Biphasic Pop Art(Fossa) 73.0BiphasicPop Art(AK) 125.0Biphasic VISUAL EFFECTS EDITOR Prox. 88.0BiphasicPTA Prox. 46.0Biphasic VISUAL EFFECTS EDITOR Dist. 100.0BiphasicPTA Dist. 45.0Biphasic Per Art Mid. Per Art Mid. 52.0Biphasic AMAURY Prox. 79.0BiphasicATA Prox. 70.0Biphasic DPA 41BiphasicDPA 42Biphasic Findings Grayscale images of peripheral arteries bilateral lower extremities showed mild diffuse atheroscleros is. Spectral waveform and color duplex analysis was performed. In the right lower extremity, the ri ght common femoral artery showed slightly elevated peak systolic velocity with triphasic waveforms. The deep femoral, superficial femoral and popliteal arteries showed normal velocities with biphasic w aveforms. Below the knee, the anterior and posterior tibial arteries showed normal velocities with b iphasic waveforms. The peroneal artery was not well visualized. In the left lower extremity, the common femoral, deep femoral, superficial femoral and popliteal rick janis showed normal velocities with biphasic waveforms. Below the knee, there was three-vessel runoff noted with normal velocities and biphasic waveforms. No significant peripheral artery stenosis was noted. Critical Notification Critical Value: No <Conclusion> Lower extremity arterial duplex scan did not show any significant peripheral artery stenosis. Signed by : Mela Brand, Electronically Approved : 01/21/2022 12:35:22
== END ==
LOC: US 08:22
PROVIDERS: ATTEND Internal Medicine Cardiovascular Disease
DX: I70.203 Unspecified atherosclerosis of native arteries of extremities, bilateral legs (principal)
CPT/HCPCS: 93922; 93925